=== PATIENT | female | born 1935 | race Caucasian/White ===

== ENCOUNTER 2017-08-20 16:07 | Inpatient (IN) | payer MEDICARE, OTHER ==
[2017-08-20] MEDS ORDERED: Haloperidol Lactate 5 mg/mL 1mL Vial IM STA (16:29)
--- NOTE | 2017-08-20 16:35 | ED Physician Chart ---
ED Chief Complaint/HPI - Patient Information Date Seen:: 08/20/17 Time Seen:: 16:29 Chief Complaint:: geripsych eval History of Present Illness:: pt sent from [place] for increased agitation. details of difficult behavior ...pt agitated at [place] and is confused/disoriented and yelling and trying to kick staff. anxious and restless. staff feel she is a danger to others. pt is verbal but I cant identify if this is a language or nonsense. she does not respond intelligably to [place] or citizen of [place] and I think she seems demented. pt is attempting to punch me after a friendly approach. she moves both arms nrmally. cant get pt to comply w detailed neuro exam or other fine exam points. Allergies:: Allergies Allergy/AdvReac Type Severity Reaction Status Date / Time MDX PCN (penicillin) Allergy Mild Verified 02/10/14 11:02 [PCN (penicillin)] Historian:: EMS, Medical Records Review:: Transfer documents Reviewed ED Review of Systems - Review of Systems General/Constitutional: No fever, No chills, No weight loss, No weakness, No diaphoresis, No edema, No loss of appetite Skin: No skin lesions, No rash, No bruising Head: No headache, No light-headedness Eyes: No loss of vision, No pain, No diplopia ENT: No earache, No nasal drainage, No sore throat, No tinnitus Neck: No neck pain, No swelling, No thyromegaly, No stiffness, No mass noted Cardio Vascular: No chest pain, No palpitations, No PND, No orthopnea, No edema Pulmonary: No SOB, No cough, No sputum, No wheezing GI: No nausea, No vomiting, No diarrhea, No pain, No melena, No hematochezia, No constipation, No hematemesis G/U: No dysuria, No frequency, No hematuria Musculoskeletal: No bone or joint pain, No back pain, No muscle pain Endocrine: No polyuria, No polydipsia Psychiatric: Prior psych history, No depression, No anxiety, No suicidal ideation, Other (agitation) Hematopoietic: No bruising, No lymphadenopathy Allergic/Immuno: No urticaria, No angioedema Neurological: No syncope, No focal symptoms, No weakness, No paresthesia, No headache, No seizure, No dizziness, No confusion, No vertigo ED Past Medical History - Past Medical History Past Medical History: HTN, DM, Dyslipidemia, Seizures, Dementia Social History: Care Facility Psychiatricy History: Schizophrenia, Dementia Medication: Reviewed Family Medical History - Family Member Mother History Unknown: Yes ED Physical Exam - Physical Examination General/Constitutional: Awake, Well-developed, well-nourished, Alert, No distress, Non-toxic appearing, Ambulatory Other Gen/Cons comments:: highly agitated and trying to hit me during exam which is severely limited because I have to hold both hands to get any exam at all. unclear if pt understands me at all but she is loudly verbal though unintelligable to me. Head: Atraumatic Eyes: Lids, conjuctiva normal, PERRL, EOMI Skin: Nl inspection, No rash, No skin lesions, No ecchymosis, Well hydrated, No lymphadenopathy ENMT: External ears, nose nl, Nasal exam nl, Lips, teeth, gums nl Neck: Nontender, Full ROM w/o pain, No JVD, No nuchal rigidity, No bruit, No mass, No stridor Respiratory: Nl effort/Exclusion, Clear to Auscultation, No Wheeze/Rhonchi/Rales Cardio Vascular: RRR, No murmur, gallop, rubs, NL S1 S2 GI: No tenderness/rebounding/guarding, No organomegaly, No hernia, Normal BS's, Nondistended, No mass/bruits, No McBurney tenderness : No CVA tenderness Extremities: No tenderness or effusion, Full ROM, normal strength in all extremities, No edema, Normal digits & nails Neuro/Psych: DTR's symmetric, Normal sensory exam, Normal motor strength, Normal gait, No focal deficits Other Neuro/Psych comments:: no obvious defecits but pt very agitated. Misc: normal gait, Normal back, No paraspinal tenderness ED Labs/Radiology/EKG Results - Lab Results Results: Laboratory Tests 08/20/17 08/20/17 08/20/17 16:45 16:45 17:50 WBC 6.6 RBC 5.46 H Hgb 13.8 Hct 42.8 D MCV 78.3 L MCH 25.3 L MCHC Differential 32.3 RDW 14.2 Plt Count 200 D MPV 8.9 Neutrophils % 55.5 Lymphocytes % 26.6 Monocytes % 12.6 H Eosinophils % 4.2 Basophils % 1.1 Sodium 134 L Potassium 5.4 H Chloride 103 Carbon Dioxide 24.6 Anion Gap 11.8 BUN 22 Creatinine 0.7 Est GFR ( Amer) TNP Est GFR (Non-Af Amer) TNP BUN/Creatinine Ratio 31.4 Glucose 165 H Calcium 9.5 Total Bilirubin 0.4 AST 17 ALT 10 Alkaline Phosphatase 80 Total Protein 6.8 Albumin 3.8 Globulin 3.0 Albumin/Globulin Ratio 1.3 Triglycerides 83 Cholesterol 184 LDL Cholesterol Direct 120 HDL Cholesterol 58 TSH 0.60 Salicylates < 25.0 L Acetaminophen < 10.0 L Ethyl Alcohol < 10 - EKG Interpretations EKG Time:: 18:30 Rate & Rhythm: a fib ...rate 100 [place]: 31 Intervals: qtc 534 Comments:: . no acute injury pattern ED Septic Shock - . Is Septic Shock (SBP<90, OR Lactate>4 mmol\L) present?: No ED Reassessment (Disposition) - Reassessment Reassessment:: pt much more calm after haldol. staff able to get labs drawn etc without getting injured.. Reassessment Condition:: Improved - Diagnosis Diagnosis:: 1)increased agitation / aggressive difficult behavior 2) medically clear for geripsych admit 3) rate stable a fib -unclear if new onset or chronic - Patient Disposition Admitted to:: [facility] Condition at Disposition:: Improved
[2017-08-20] MEDS ORDERED: Haloperidol Lactate 5 mg/mL 1mL Vial ONE (16:53)
[2017-08-20 17:09] LABS: ACETAMINOPHEN < 10.0 ug/mL (10.0-30.0); ALB/GLOB RATIO 1.3 (1.0-1.8); ALKALINE PHOSPHATASE 80 U/L (34-104); ANION GAP 11.8 (7.0-16.0); BILIRUBIN,TOTAL 0.4 mg/dL (0.3-1.0); BUN - UREA NITROGEN 22 mg/dL (7-25); BUN/CREATININE RATIO 31.4; CALCIUM SERUM 9.5 mg/dL (8.6-10.3); CARBON DIOXIDE 24.6 mEq/L (21.0-31.0); CHLORIDE 103 mEq/L (98-107); CHOLESTEROL 184 mg/dL (<200); CREATININE - SERUM 0.7 mg/dL (0.6-1.2); GLUCOSE 165 mg/dL (70-105); POTASSIUM SERUM 5.4 mEq/L (3.5-5.1); SGOT 17 U/L (13-39); SGPT/ALT 10 U/L (7-52); SODIUM SERUM 134 mEq/L (136-145); TRIGLYCERIDES 83 mg/dL (<150)
[2017-08-20 18:00] LABS: % BASOPHILS 1.1 % (0.0-2.0); % EOSINOPHILS 4.2 % (0.0-5.0); % LYMPHOCYTES 26.6 % (20.0-50.0); % MONOCYTES 12.6 % (2.0-10.0); % NEUTROPHILS 55.5 % (40.0-80.0); HEMOGLOBIN 13.8 gm/dL (12-16); MEAN CELL VOLUME 78.3 fl (81-100); MEAN CORPUSCULAR HEMOGLOBIN 25.3 pg (27.0-31.0); MEAN CORPUSCULAR HGB CONC 32.3 pg (28.0-36.0); MEAN PLATELET VOLUME 8.9 fl; NEUTROPHILE ABSOLUTE 3.6 Th/cmm (1.8-8.0); RED BLOOD COUNT 5.46 Mil/cmm (3.80-5.20); RED CELL DISTRIBUTION WIDTH 14.2 % (11.5-20.0); WHITE BLOOD COUNT 6.6 Th/cmm (4.8-10.8)
[2017-08-20 18:02] LABS: HEMATOCRIT 42.8 % (41.0-60)
[2017-08-20 18:03] LABS: PLATELET COUNT 200 Th/cmm (150-400)
[2017-08-20 18:17] LABS: URINE BILIRUBIN NEGATIVE (NEGATIVE); URINE BLOOD NEGATIVE (NEGATIVE); URINE GLUCOSE (UA) NEGATIVE (NEGATIVE); URINE KETONE NEGATIVE (NEGATIVE); URINE PROTEIN NEGATIVE (NEGATIVE)
[2017-08-20 18:20] LABS: URINE BACTERIA NONE SEEN /hpf (NONE SEEN); URINE COLOR YELLOW; URINE EPITHELIAL CELLS NONE SEEN /lpf (FEW); URINE RBC NONE SEEN /hpf (0-5); URINE WBC NONE SEEN /hpf (0-5)
[2017-08-20] MEDS ORDERED: Magnesium Hydroxide (MOM) 30 mL UDC PO PRN (20:18)
[2017-08-20] MEDS ORDERED: Maalox 30 mL Cup PO PRN (20:18)
[2017-08-20] MEDS ORDERED: Albuterol/Ipratropium Neb 3 ML AERS HHN PRN (20:39)
[2017-08-21 01:58] VITALS: BP 138/89
[2017-08-21 08:39] LABS: AMPHETAMINE URINE NEGATIVE (NEGATIVE); BARBITURATES URINE NEGATIVE (NEGATIVE); METHADONE URINE NEGATIVE (NEGATIVE)
--- NOTE | 2017-08-21 09:01 | History and Physical ---
History of Present Illness - HPI Chief Complaint: Increased in agitation HPI: Patient was send from SNF for evaluation secondary to increased in agitation, at arrival to ER patientwas atgitated trying to kick nurse. Vital Signs: Last Vital Signs Temp 0 F 08/21/17 06:41 Pulse 88 08/21/17 08:26 Resp 20 08/21/17 08:26 BP 138/89 08/21/17 01:58 Pulse Ox 95 08/21/17 08:26 Past Medical History Cardiovascular: Report: AFIB, CAD, HTN Pulmonary: Report: No Pertinent Hx WILD [employer]IMAL [employer]ET[employer]ER: Report: Dementia Psych: Report: No Pertinent Hx Musculoskeletal: Report: Muscle Atrophy Rheumatologic: Report: No pertinent Hx Infectious Disease: Report: No Pertinent Hx Renal/: Report: No Pertinent Hx Endocrine: Report: Diabetes Dermatology: Report: No Pertinent Hx - Past Surgical History Past Surgical History: No pertinent Hx Family Medical History - Family Member Mother History Unknown: Yes Social History Smoke: No Alcohol: None Drugs: None Lives: Senior Care Domestic Violence: Negative - Medications Home Medications: Home Medication Medication Instructions Recorded Type Albuterol/Ipratropium Neb [Duoneb 3 ml HHN Q6H PRN 08/20/17 History Neb] Carvedilol [Coreg] 3.125 mg PO BID 08/20/17 History Dextromethorphan/Quinidine 1 cap PO Q12H 08/20/17 History [Nuedexta 20mg-10mg] Divalproex DR [Depakote DR] 125 mg PO BID 08/20/17 History Levetiracetam [Keppra] 500 mg PO Q12H 08/20/17 History Lorazepam [Ativan] 1 mg PO Q8H PRN 08/20/17 History Pantoprazole [Protonix] 40 mg PO DAILY 08/20/17 History - Allergies Allergies/Adverse Reactions: Allergies Allergy/AdvReac Type Severity Reaction Status Date / Time Penicillins [PCN] Allergy Verified 08/20/17 16:33 Review of Systems - Review of Systems Constitutional: Report: No Significant Eyes: Report: No Significant ENT: Report: No Significant Respiratory: Report: No Significant Cardiovascular: Report: No Significant Gastrointestinal: Report: No Significant Genitourinary: Report: No Significant Musculoskeletal: Report: No Significant Skin: Report: No Significant Neurological: Report: No Significant Physical Exam - Physical Exam HEENT: Report: Ears Nose Throat within normal limits Neck: Report: Within normal limits Cardiovascular Systems: Report: Regular, Rate and Rhythm Respiratory: Report: Breath Sounds are within normal limits Abdomen: Report: Non-tender to palpation Back: Report: Inspection of back is within normal limits. Extremities: Report: No pedal edema was noted on inspection Skin: Report: Color of skin is within normal limits Neuro/Psych: Report: Disoriented to name time or place (Neurological evaluation not completed due to patient agitation) - Lab Results All Lab Results last 24 hours: Laboratory Last Values WBC 6.6 Th/cmm (4.8-10.8) 08/20/17 17:50 RBC 5.46 Mil/cmm (3.80-5.20) H 08/20/17 17:50 Hgb 13.8 gm/dL (12-16) 08/20/17 17:50 Hct 42.8 % (41.0-60) D 08/20/17 17:50 MCV 78.3 fl (81-100) L 08/20/17 17:50 MCH 25.3 pg (27.0-31.0) L 08/20/17 17:50 MCHC Differential 32.3 pg (28.0-36.0) 08/20/17 17:50 RDW 14.2 % (11.5-20.0) 08/20/17 17:50 Plt Count 200 Th/cmm (150-400) D 08/20/17 17:50 MPV 8.9 fl 08/20/17 17:50 Neutrophils % 55.5 % (40.0-80.0) 08/20/17 17:50 Lymphocytes % 26.6 % (20.0-50.0) 08/20/17 17:50 Monocytes % 12.6 % (2.0-10.0) H 08/20/17 17:50 Eosinophils % 4.2 % (0.0-5.0) 08/20/17 17:50 Basophils % 1.1 % (0.0-2.0) 08/20/17 17:50 Sodium 134 mEq/L (136-145) L 08/20/17 16:45 Potassium 5.4 mEq/L (3.5-5.1) H 08/20/17 16:45 Chloride 103 mEq/L (98-107) 08/20/17 16:45 Carbon Dioxide 24.6 mEq/L (21.0-31.0) 08/20/17 16:45 Anion Gap 11.8 (7.0-16.0) 08/20/17 16:45 BUN 22 mg/dL (7-25) 08/20/17 16:45 Creatinine 0.7 mg/dL (0.6-1.2) 08/20/17 16:45 Est GFR ( Amer) TNP 08/20/17 16:45 Est GFR (Non-Af Amer) TNP 08/20/17 16:45 BUN/Creatinine Ratio 31.4 08/20/17 16:45 Glucose 165 mg/dL (70-105) H 08/20/17 16:45 Calcium 9.5 mg/dL (8.6-10.3) 08/20/17 16:45 Total Bilirubin 0.4 mg/dL (0.3-1.0) 08/20/17 16:45 AST 17 U/L (13-39) 08/20/17 16:45 ALT 10 U/L (7-52) 08/20/17 16:45 Alkaline Phosphatase 80 U/L (34-104) 08/20/17 16:45 Total Protein 6.8 gm/dL (6.0-8.3) 08/20/17 16:45 Albumin 3.8 gm/dL (3.7-5.3) 08/20/17 16:45 Globulin 3.0 gm/dL 08/20/17 16:45 Albumin/Globulin Ratio 1.3 (1.0-1.8) 08/20/17 16:45 Triglycerides 83 mg/dL (<150) 08/20/17 16:45 Cholesterol 184 mg/dL (<200) 08/20/17 16:45 LDL Cholesterol Direct 120 mg/dL (75-193) 08/20/17 16:45 HDL Cholesterol 58 mg/dL (23-92) 08/20/17 16:45 TSH 0.60 uIU/ml (0.34-5.60) 08/20/17 16:45 Urine Source CLEAN C 08/20/17 17:52 Urine Color YELLOW 08/20/17 17:52 Urine Clarity CLEAR (CLEAR) 08/20/17 17:52 Urine pH 6.0 (4.6 - 8.0) 08/20/17 17:52 Ur Specific [place] 1.025 (1.005-1.030) 08/20/17 17:52 Urine Protein NEGATIVE mg/dL (NEGATIVE) 08/20/17 17:52 Urine Glucose (UA) NEGATIVE mg/dL (NEGATIVE) 08/20/17 17:52 Urine Ketones NEGATIVE mg/dL (NEGATIVE) 08/20/17 17:52 Urine Blood NEGATIVE (NEGATIVE) 08/20/17 17:52 Urine Nitrate NEGATIVE (NEGATIVE) 08/20/17 17:52 Urine Bilirubin NEGATIVE (NEGATIVE) 08/20/17 17:52 Urine Urobilinogen 1.0 E.U./dL (0.2 - 1.0) 08/20/17 17:52 Ur Leukocyte Esterase NEGATIVE (NEGATIVE) 08/20/17 17:52 Urine RBC NONE SEEN /hpf (0-5) 08/20/17 17:52 Urine WBC NONE SEEN /hpf (0-5) 08/20/17 17:52 Ur Epithelial Cells NONE SEEN /lpf (FEW) 08/20/17 17:52 Urine Bacteria NONE SEEN /hpf (NONE SEEN) 08/20/17 17:52 Salicylates < 25.0 mg/L (30.0-100.0) L 08/20/17 16:45 Urine Opiates Screen NEGATIVE (NEGATIVE) 08/20/17 17:52 Urine Methadone Screen NEGATIVE (NEGATIVE) 08/20/17 17:52 Acetaminophen < 10.0 ug/mL (10.0-30.0) L 08/20/17 16:45 Ur Barbiturates Screen NEGATIVE (NEGATIVE) 08/20/17 17:52 Ur Tricyclics Screen NEGATIVE (NEGATIVE) 08/20/17 17:52 Ur Phencyclidine Scrn NEGATIVE (NEGATIVE) 08/20/17 17:52 Amphetamines Screen NEGATIVE (NEGATIVE) 08/20/17 17:52 U Methamphetamines Scrn NEGATIVE (NEGATIVE) 08/20/17 17:52 U Benzodiazepines Scrn NEGATIVE (NEGATIVE) 08/20/17 17:52 U Cocaine Metab Screen NEGATIVE (NEGATIVE) 08/20/17 17:52 U Cannabinoids Screen NEGATIVE (NEGATIVE) 08/20/17 17:52 Ethyl Alcohol < 10 mg/dL (0-10) 08/20/17 16:45 - Assessment Assessment: Patient is awake, confused, agitated in no acute distress. Dx: Psychosis, HTN, DM, Dyslipemia, Seizure disorder, A-fib. - Plan Plan: Patient is follow by Psychiatry. Will continue with SNF meds
[2017-08-21] MEDS: Multivitamin Tab PO SCH (09:35)
[2017-08-21] MEDS: Dextromethorphan/Quinidine 20mg/10mg Cap PO SCH ×2 (09:35→20:23)
[2017-08-21] MEDS: Pantoprazole 40 mg EC Tab PO SCH (09:35)
--- NOTE | 2017-08-21 09:43 | Diagnostic Imaging Report ---
CHEST X-RAY: AP view INDICATION: Shortness of breath COMPARISON: None FINDINGS: Exam is severely limited due to patient's head obscuring the upper thorax.. Otherwise no focal consolidation or effusions. Suboptimal lung volumes are noted. No effusions. Right basal atelectasis noted. Cardiomegaly is noted. The osseous structures demonstrate osteopenia and degenerative changes. IMPRESSION: Severely limited exam as patient's head obscures the upper thorax. Otherwise no focal consolidation identified. Right basal atelectasis Cardiomegaly.
--- NOTE | 2017-08-22 00:56 | Psychosocial Evaluation ---
DATE OF SERVICE: 08/21/2017 IDENTIFYING DATA: The patient is an 82-year-old woman admitted from the snf facility and that is in [facility]. Information obtained by directly interviewing the patient as well as talking to the staff members. As per the information, the patient is noted to be acutely agitated and confused and is reported to have been screaming and yelling prior to being hospitalized. The patient is reported to have been on Depakote and lorazepam, but the patient has been having difficult time to be following the directions. The patient at this time is being completely evaluated and physical examination requested done by Dr. Augie Flores. At the time of the hospitalization, the patient has been on the valproic acid 25 mg twice a day and lorazepam 1 mg q.8 hours p.r.n. and even with the medication. The patient has been having difficult time. PAST PSYCHIATRIC HISTORY: Details are not known. MEDICAL HISTORY AND PHYSICAL EXAMINATION: Requested done by Dr. Flores. LEGAL PROBLEMS: None at this time. MENTAL STATUS EXAMINATION: The patient is an 82-year-old woman, superficially cooperative. Eye contact is poor. Mood is irritable. Affect is constricted. Insight and judgment at this time are noted to be poor. Impulse control is also noted to be poor. The patient is reported to have been having screaming and yelling episodes at the facility. The patient is lying in bed and is not providing much of information. Attention span and concentration are noted to be poor short and senior living are noted to be impaired. DIAGNOSTIC IMPRESSION: 1. Psychotic disorder, not otherwise specified. B. Dementia and behavioral change secondary trait. AXIS II: None. AXIS III: As per Dr. Flores. IMMEDIATE TREATMENT PLAN: The patient is going to be continued on the Depakote and Ativan is going to be given only has 0.5 mg b.i.d. p.r.n. and the patient is going to be closely monitored. ESTIMATED LENGTH OF STAY: Three to five days. DISCHARGE CRITERIA: When the patient is no longer a threat to self or others and be able to cope with the stress. [facility]# [id number]
[2017-08-22] MEDS: Dextromethorphan/Quinidine 20mg/10mg Cap PO SCH ×2 (09:07→20:53)
[2017-08-22] MEDS: Multivitamin Tab PO SCH (09:09)
[2017-08-22] MEDS: Pantoprazole 40 mg EC Tab PO SCH (09:09)
[2017-08-22] MEDS ORDERED: INSULIN ASPART SLIDING SCALE 100 UNITS/ML UNIT SUBQ SCH (19:17)
--- NOTE | 2017-08-23 02:01 | Progress Notes ---
DATE: 08/22/2017 SUBJECTIVE: Staff was spoken to. The patient is interviewed. Mood is noted to be irritable. Affect is constricted. The patient is having a mild tremor in the upper extremity. The patient is refusing to take any of the medications. The patient, however, has been having some spells where she has been screaming and yelling. No side effects to the medications are noted at this time. The patient is going to be given a low dose of the Ativan if she is going to be out of control. ASSESSMENT: The patient is still impulsive at this time. PLAN: To continue the patient with the supportive therapy and encouraged the patient to verbalize the concerns rather than to act out. JOB# [id number]
[2017-08-23] MEDS: INSULIN ASPART SLIDING SCALE 100 UNITS/ML UNIT SUBQ SCH ×2 (06:38→17:37)
--- NOTE | 2017-08-23 09:18 | General Progress Note ---
Subjective - Review of Systems Service Date: 08/23/17 Subjective: Non verbal Objective - Results Result Diagrams: 08/20/17 17:50 08/20/17 16:45 Recent Labs: Laboratory Last Values WBC 6.6 Th/cmm (4.8-10.8) 08/20/17 17:50 RBC 5.46 Mil/cmm (3.80-5.20) H 08/20/17 17:50 Hgb 13.8 gm/dL (12-16) 08/20/17 17:50 Hct 42.8 % (41.0-60) D 08/20/17 17:50 MCV 78.3 fl (81-100) L 08/20/17 17:50 MCH 25.3 pg (27.0-31.0) L 08/20/17 17:50 MCHC Differential 32.3 pg (28.0-36.0) 08/20/17 17:50 RDW 14.2 % (11.5-20.0) 08/20/17 17:50 Plt Count 200 Th/cmm (150-400) D 08/20/17 17:50 MPV 8.9 fl 08/20/17 17:50 Neutrophils % 55.5 % (40.0-80.0) 08/20/17 17:50 Lymphocytes % 26.6 % (20.0-50.0) 08/20/17 17:50 Monocytes % 12.6 % (2.0-10.0) H 08/20/17 17:50 Eosinophils % 4.2 % (0.0-5.0) 08/20/17 17:50 Basophils % 1.1 % (0.0-2.0) 08/20/17 17:50 Sodium 134 mEq/L (136-145) L 08/20/17 16:45 Potassium 5.4 mEq/L (3.5-5.1) H 08/20/17 16:45 Chloride 103 mEq/L (98-107) 08/20/17 16:45 Carbon Dioxide 24.6 mEq/L (21.0-31.0) 08/20/17 16:45 Anion Gap 11.8 (7.0-16.0) 08/20/17 16:45 BUN 22 mg/dL (7-25) 08/20/17 16:45 Creatinine 0.7 mg/dL (0.6-1.2) 08/20/17 16:45 Est GFR ( Amer) TNP 08/20/17 16:45 Est GFR (Non-Af Amer) TNP 08/20/17 16:45 BUN/Creatinine Ratio 31.4 08/20/17 16:45 Glucose 165 mg/dL (70-105) H 08/20/17 16:45 POC Glucose 115 MG/DL (70 - 105) H 08/23/17 06:13 Calcium 9.5 mg/dL (8.6-10.3) 08/20/17 16:45 Total Bilirubin 0.4 mg/dL (0.3-1.0) 08/20/17 16:45 AST 17 U/L (13-39) 08/20/17 16:45 ALT 10 U/L (7-52) 08/20/17 16:45 Alkaline Phosphatase 80 U/L (34-104) 08/20/17 16:45 Total Protein 6.8 gm/dL (6.0-8.3) 08/20/17 16:45 Albumin 3.8 gm/dL (3.7-5.3) 08/20/17 16:45 Globulin 3.0 gm/dL 08/20/17 16:45 Albumin/Globulin Ratio 1.3 (1.0-1.8) 08/20/17 16:45 Triglycerides 83 mg/dL (<150) 08/20/17 16:45 Cholesterol 184 mg/dL (<200) 08/20/17 16:45 LDL Cholesterol Direct 120 mg/dL (75-193) 08/20/17 16:45 HDL Cholesterol 58 mg/dL (23-92) 08/20/17 16:45 TSH 0.60 uIU/ml (0.34-5.60) 08/20/17 16:45 Urine Source CLEAN C 08/20/17 17:52 Urine Color YELLOW 08/20/17 17:52 Urine Clarity CLEAR (CLEAR) 08/20/17 17:52 Urine pH 6.0 (4.6 - 8.0) 08/20/17 17:52 Ur Specific [place] 1.025 (1.005-1.030) 08/20/17 17:52 Urine Protein NEGATIVE mg/dL (NEGATIVE) 08/20/17 17:52 Urine Glucose (UA) NEGATIVE mg/dL (NEGATIVE) 08/20/17 17:52 Urine Ketones NEGATIVE mg/dL (NEGATIVE) 08/20/17 17:52 Urine Blood NEGATIVE (NEGATIVE) 08/20/17 17:52 Urine Nitrate NEGATIVE (NEGATIVE) 08/20/17 17:52 Urine Bilirubin NEGATIVE (NEGATIVE) 08/20/17 17:52 Urine Urobilinogen 1.0 E.U./dL (0.2 - 1.0) 08/20/17 17:52 Ur Leukocyte Esterase NEGATIVE (NEGATIVE) 08/20/17 17:52 Urine RBC NONE SEEN /hpf (0-5) 08/20/17 17:52 Urine WBC NONE SEEN /hpf (0-5) 08/20/17 17:52 Ur Epithelial Cells NONE SEEN /lpf (FEW) 08/20/17 17:52 Urine Bacteria NONE SEEN /hpf (NONE SEEN) 08/20/17 17:52 Salicylates < 25.0 mg/L (30.0-100.0) L 08/20/17 16:45 Urine Opiates Screen NEGATIVE (NEGATIVE) 08/20/17 17:52 Urine Methadone Screen NEGATIVE (NEGATIVE) 08/20/17 17:52 Acetaminophen < 10.0 ug/mL (10.0-30.0) L 08/20/17 16:45 Ur Barbiturates Screen NEGATIVE (NEGATIVE) 08/20/17 17:52 Ur Tricyclics Screen NEGATIVE (NEGATIVE) 08/20/17 17:52 Ur Phencyclidine Scrn NEGATIVE (NEGATIVE) 08/20/17 17:52 Amphetamines Screen NEGATIVE (NEGATIVE) 08/20/17 17:52 U Methamphetamines Scrn NEGATIVE (NEGATIVE) 08/20/17 17:52 U Benzodiazepines Scrn NEGATIVE (NEGATIVE) 08/20/17 17:52 U Cocaine Metab Screen NEGATIVE (NEGATIVE) 08/20/17 17:52 U Cannabinoids Screen NEGATIVE (NEGATIVE) 08/20/17 17:52 Ethyl Alcohol < 10 mg/dL (0-10) 08/20/17 16:45 RPR NONREACTIVE (NONREACTIVE) 08/20/17 16:45 - Physical Exam Vitals and I&O: Vital Signs Temp 98.4 F 08/23/17 06:36 Pulse 66 08/23/17 08:12 Resp 18 08/23/17 08:12 BP 141/74 08/23/17 06:36 Pulse Ox 94 08/23/17 08:12 Intake & Output 08/22/17 08/23/17 08/23/17 18:59 06:59 18:59 Intake Total 660 120 Balance 660 120 Intake: Oral 660 120 Other: # Voids 3 3 # Bowel Movements 0 Active Medications: Current Medications Acetaminophen (Tylenol) 650 mg PO Q4HR PRN PRN Reason: Mild Pain / Temp above 100 Stop: 10/19/17 20:17 Al Hydrox/Mg Hydrox/Simethicone (Maalox) 30 ml PO Q4HR PRN PRN Reason: GI DISTRESS Stop: 10/19/17 20:17 Albuterol/Ipratropium (Duoneb Neb) 3 ml HHN Q6H PRN PRN Reason: sob Stop: 10/19/17 20:38 Carvedilol (Coreg) 3.125 mg PO BID TARA Stop: 10/20/17 08:59 Last Admin: 08/22/17 16:58 Dose: Not Given Dextromethorphan/Quinidine (Nuedexta 20mg-10mg) 1 cap PO Q12H TARA Stop: 10/20/17 08:59 Last Admin: 08/22/17 20:53 Dose: Not Given Diphenhydramine HCl (Benadryl) 25 mg PO TID PRN PRN Reason: Cough Stop: 10/21/17 13:24 Divalproex Sodium (Depakote Dr) 125 mg PO BID TARA PRN Reason: Protocol Stop: 10/20/17 08:59 Last Admin: 08/22/17 16:57 Dose: Not Given Insulin Aspart (Novolog Insulin Sliding Scale) 0 units SUBQ BIDAC TARA PRN Reason: Protocol Stop: 10/22/17 07:29 Last Admin: 08/23/17 06:38 Dose: Not Given Levetiracetam (Keppra) 500 mg PO Q12H TARA Stop: 10/20/17 08:59 Last Admin: 08/22/17 20:53 Dose: Not Given Lorazepam (Ativan) 0.5 mg PO Q8H PRN; Protocol PRN Reason: Anxiety Stop: 10/19/17 20:38 Magnesium Hydroxide (Milk Of Magnesia) 30 ml PO HS PRN PRN Reason: Constipation Multivitamins/Vitamin C (Theragran) 1 tab PO DAILY TARA Stop: 10/20/17 08:59 Last Admin: 08/22/17 09:09 Dose: Not Given Pantoprazole Sodium (Protonix) 40 mg PO DAILY TARA Stop: 10/20/17 08:59 Last Admin: 08/22/17 09:09 Dose: Not Given Zolpidem Tartrate (Ambien) 5 mg PO HS PRN PRN Reason: Insomnia Stop: 10/19/17 20:17 General: Alert, Other HEENT: Atraumatic Neck: Supple Cardiovascular: Regular rate Lungs: Clear to auscultation Abdomen: Bowel sounds, Soft Extremities: Other (No edema) Neurological: Other (Non ambulatory) Skin: Other (warm and dry) Psych/Mental Status: Other (Confused) - Procedures Procedures: Procedures Procedure Code Date OTHER GROUP THERAPY 94.44 02/10/14 Assessment/Plan - Problem List Patient Problems: All Active Problems BPD (Active) DM (Active) GERD (Active) Hyperlipidemia (Active) Seizure (Active) agitation (Active) Mental health problem (Acute) F48.9 - Assessment Assessment: Patient is awake, confused, agitated in no acute distress. Dx: Psychosis, HTN, DM, Dyslipemia, Seizure disorder, A-fib. - Plan Plan: Patient is follow by Psychiatry. Will continue with SNF meds
[2017-08-23] MEDS: Pantoprazole 40 mg EC Tab PO SCH (09:36)
[2017-08-23] MEDS: Multivitamin Tab PO SCH (09:37)
[2017-08-23] MEDS: Dextromethorphan/Quinidine 20mg/10mg Cap PO SCH ×2 (09:37→21:05)
--- NOTE | 2017-08-24 00:47 | Progress Notes ---
DATE: 08/23/2017 SUBJECTIVE: The patient is very irritable and anxious. The patient has been having poor coping skills. The patient tends to scream and yelling ____ towards the end of the day. Because of the age, we have been giving the patient only the Ativan to calm her down. No side effects to the medications are noted at this time. ASSESSMENT: The patient is still grossly demented. PLAN: To continue the patient with supportive therapy. I encouraged the patient to verbalize the concerns rather than to act out at this time. The patient is having difficult time and is not ready to be discharged to a lower level of care yet. JOB# [id number]
[2017-08-24] MEDS: INSULIN ASPART SLIDING SCALE 100 UNITS/ML UNIT SUBQ SCH ×2 (07:01→17:17)
[2017-08-24] MEDS: Multivitamin Tab PO SCH (09:27)
[2017-08-24] MEDS: Pantoprazole 40 mg EC Tab PO SCH (09:27)
[2017-08-24] MEDS: Dextromethorphan/Quinidine 20mg/10mg Cap PO SCH ×2 (09:27→20:25)
--- NOTE | 2017-08-24 10:18 | General Progress Note ---
Subjective - Review of Systems Service Date: 08/24/17 Subjective: Non verbal Objective - Results Result Diagrams: 08/20/17 17:50 08/20/17 16:45 Recent Labs: Laboratory Last Values WBC 6.6 Th/cmm (4.8-10.8) 08/20/17 17:50 RBC 5.46 Mil/cmm (3.80-5.20) H 08/20/17 17:50 Hgb 13.8 gm/dL (12-16) 08/20/17 17:50 Hct 42.8 % (41.0-60) D 08/20/17 17:50 MCV 78.3 fl (81-100) L 08/20/17 17:50 MCH 25.3 pg (27.0-31.0) L 08/20/17 17:50 MCHC Differential 32.3 pg (28.0-36.0) 08/20/17 17:50 RDW 14.2 % (11.5-20.0) 08/20/17 17:50 Plt Count 200 Th/cmm (150-400) D 08/20/17 17:50 MPV 8.9 fl 08/20/17 17:50 Neutrophils % 55.5 % (40.0-80.0) 08/20/17 17:50 Lymphocytes % 26.6 % (20.0-50.0) 08/20/17 17:50 Monocytes % 12.6 % (2.0-10.0) H 08/20/17 17:50 Eosinophils % 4.2 % (0.0-5.0) 08/20/17 17:50 Basophils % 1.1 % (0.0-2.0) 08/20/17 17:50 Sodium 134 mEq/L (136-145) L 08/20/17 16:45 Potassium 5.4 mEq/L (3.5-5.1) H 08/20/17 16:45 Chloride 103 mEq/L (98-107) 08/20/17 16:45 Carbon Dioxide 24.6 mEq/L (21.0-31.0) 08/20/17 16:45 Anion Gap 11.8 (7.0-16.0) 08/20/17 16:45 BUN 22 mg/dL (7-25) 08/20/17 16:45 Creatinine 0.7 mg/dL (0.6-1.2) 08/20/17 16:45 Est GFR ( Amer) TNP 08/20/17 16:45 Est GFR (Non-Af Amer) TNP 08/20/17 16:45 BUN/Creatinine Ratio 31.4 08/20/17 16:45 Glucose 165 mg/dL (70-105) H 08/20/17 16:45 POC Glucose 186 MG/DL (70 - 105) H 08/24/17 06:40 Calcium 9.5 mg/dL (8.6-10.3) 08/20/17 16:45 Total Bilirubin 0.4 mg/dL (0.3-1.0) 08/20/17 16:45 AST 17 U/L (13-39) 08/20/17 16:45 ALT 10 U/L (7-52) 08/20/17 16:45 Alkaline Phosphatase 80 U/L (34-104) 08/20/17 16:45 Total Protein 6.8 gm/dL (6.0-8.3) 08/20/17 16:45 Albumin 3.8 gm/dL (3.7-5.3) 08/20/17 16:45 Globulin 3.0 gm/dL 08/20/17 16:45 Albumin/Globulin Ratio 1.3 (1.0-1.8) 08/20/17 16:45 Triglycerides 83 mg/dL (<150) 08/20/17 16:45 Cholesterol 184 mg/dL (<200) 08/20/17 16:45 LDL Cholesterol Direct 120 mg/dL (75-193) 08/20/17 16:45 HDL Cholesterol 58 mg/dL (23-92) 08/20/17 16:45 TSH 0.60 uIU/ml (0.34-5.60) 08/20/17 16:45 Urine Source CLEAN C 08/20/17 17:52 Urine Color YELLOW 08/20/17 17:52 Urine Clarity CLEAR (CLEAR) 08/20/17 17:52 Urine pH 6.0 (4.6 - 8.0) 08/20/17 17:52 Ur Specific [place] 1.025 (1.005-1.030) 08/20/17 17:52 Urine Protein NEGATIVE mg/dL (NEGATIVE) 08/20/17 17:52 Urine Glucose (UA) NEGATIVE mg/dL (NEGATIVE) 08/20/17 17:52 Urine Ketones NEGATIVE mg/dL (NEGATIVE) 08/20/17 17:52 Urine Blood NEGATIVE (NEGATIVE) 08/20/17 17:52 Urine Nitrate NEGATIVE (NEGATIVE) 08/20/17 17:52 Urine Bilirubin NEGATIVE (NEGATIVE) 08/20/17 17:52 Urine Urobilinogen 1.0 E.U./dL (0.2 - 1.0) 08/20/17 17:52 Ur Leukocyte Esterase NEGATIVE (NEGATIVE) 08/20/17 17:52 Urine RBC NONE SEEN /hpf (0-5) 08/20/17 17:52 Urine WBC NONE SEEN /hpf (0-5) 08/20/17 17:52 Ur Epithelial Cells NONE SEEN /lpf (FEW) 08/20/17 17:52 Urine Bacteria NONE SEEN /hpf (NONE SEEN) 08/20/17 17:52 Salicylates < 25.0 mg/L (30.0-100.0) L 08/20/17 16:45 Urine Opiates Screen NEGATIVE (NEGATIVE) 08/20/17 17:52 Urine Methadone Screen NEGATIVE (NEGATIVE) 08/20/17 17:52 Acetaminophen < 10.0 ug/mL (10.0-30.0) L 08/20/17 16:45 Ur Barbiturates Screen NEGATIVE (NEGATIVE) 08/20/17 17:52 Ur Tricyclics Screen NEGATIVE (NEGATIVE) 08/20/17 17:52 Ur Phencyclidine Scrn NEGATIVE (NEGATIVE) 08/20/17 17:52 Amphetamines Screen NEGATIVE (NEGATIVE) 08/20/17 17:52 U Methamphetamines Scrn NEGATIVE (NEGATIVE) 08/20/17 17:52 U Benzodiazepines Scrn NEGATIVE (NEGATIVE) 08/20/17 17:52 U Cocaine Metab Screen NEGATIVE (NEGATIVE) 08/20/17 17:52 U Cannabinoids Screen NEGATIVE (NEGATIVE) 08/20/17 17:52 Ethyl Alcohol < 10 mg/dL (0-10) 08/20/17 16:45 RPR NONREACTIVE (NONREACTIVE) 08/20/17 16:45 - Physical Exam Vitals and I&O: Vital Signs Temp 97.2 F 08/24/17 06:41 Pulse 68 08/24/17 09:27 Resp 18 08/24/17 07:43 BP 146/61 08/24/17 09:27 Pulse Ox 92 08/24/17 07:43 Intake & Output 08/23/17 08/24/17 08/24/17 18:59 06:59 18:59 Intake Total 960 120 Balance 960 120 Weight (lbs) 50.439 kg Intake: Oral 960 120 Other: # Voids 3 3 # Bowel Movements 0 Active Medications: Current Medications Acetaminophen (Tylenol) 650 mg PO Q4HR PRN PRN Reason: Mild Pain / Temp above 100 Stop: 10/19/17 20:17 Last Admin: 08/23/17 11:16 Dose: 650 mg Al Hydrox/Mg Hydrox/Simethicone (Maalox) 30 ml PO Q4HR PRN PRN Reason: GI DISTRESS Stop: 10/19/17 20:17 Albuterol/Ipratropium (Duoneb Neb) 3 ml HHN Q6H PRN PRN Reason: sob Stop: 10/19/17 20:38 Carvedilol (Coreg) 3.125 mg PO BID TARA Stop: 10/20/17 08:59 Last Admin: 08/24/17 09:27 Dose: 3.125 mg Dextromethorphan/Quinidine (Nuedexta 20mg-10mg) 1 cap PO Q12H TARA Stop: 10/20/17 08:59 Last Admin: 08/24/17 09:27 Dose: 1 cap Diphenhydramine HCl (Benadryl) 25 mg PO TID PRN PRN Reason: Cough Stop: 10/21/17 13:24 Divalproex Sodium (Depakote Dr) 125 mg PO BID TARA PRN Reason: Protocol Stop: 10/20/17 08:59 Last Admin: 08/24/17 09:27 Dose: 125 mg Insulin Aspart (Novolog Insulin Sliding Scale) 0 units SUBQ BIDAC TARA PRN Reason: Protocol Stop: 10/22/17 07:29 Last Admin: 08/24/17 07:01 Dose: 2 units Levetiracetam (Keppra) 500 mg PO Q12H TARA Stop: 10/20/17 08:59 Last Admin: 08/24/17 09:27 Dose: 500 mg Lorazepam (Ativan) 0.5 mg PO Q8H PRN; Protocol PRN Reason: Anxiety Stop: 10/19/17 20:38 Magnesium Hydroxide (Milk Of Magnesia) 30 ml PO HS PRN PRN Reason: Constipation Multivitamins/Vitamin C (Theragran) 1 tab PO DAILY TARA Stop: 10/20/17 08:59 Last Admin: 08/24/17 09:27 Dose: 1 tab Pantoprazole Sodium (Protonix) 40 mg PO DAILY TARA Stop: 10/20/17 08:59 Last Admin: 08/24/17 09:27 Dose: 40 mg Zolpidem Tartrate (Ambien) 5 mg PO HS PRN PRN Reason: Insomnia Stop: 10/19/17 20:17 General: Alert, Other HEENT: Atraumatic Neck: Supple Cardiovascular: Regular rate Lungs: Clear to auscultation Abdomen: Bowel sounds, Soft Extremities: Other (No edema) Neurological: Other (Non ambulatory) Skin: Other (warm and dry) Psych/Mental Status: Other (Confused) - Procedures Procedures: Procedures Procedure Code Date OTHER GROUP THERAPY 94.44 02/10/14 Assessment/Plan - Problem List Patient Problems: All Active Problems BPD (Active) DM (Active) GERD (Active) Hyperlipidemia (Active) Seizure (Active) agitation (Active) Mental health problem (Acute) F48.9 - Assessment Assessment: Patient is awake, confused, agitated in no acute distress. Dx: Psychosis, HTN, DM, Dyslipemia, Seizure disorder, A-fib. - Plan Plan: Patient is follow by Psychiatry. Will continue with SNF meds. Nutritional Asmnt/Malnutr-PDOC - Dietary Evaluation Malnutrition Findings (Please click <Entered> for more info): Nutritional Asmnt/Malnutrition Start: 08/23/17 17: 05 Text: Status: Complete Freq: Document 08/23/17 17:05 GSUN (Rec: 08/23/17 17:16 [id number]) Nutritional Asmnt/Malnutrition Patient General Information Nutritional Screening Moderate Risk Screening Diagnosis Psychotic disorder NOS, dementia behavioral change Pertinent Medical Hx/Surgical Hx Afib, CAD, HTN, dementia, muscle atrophy, DM Subjective Information 82 year old female from SNF. Per EMR, 0% for 5 out of 6 meals recorded. Pt with 1 meal of 75% yesterday 08/22 with family assisted with meal, creative writer visualized. Visited pt during meal time today. YARD DEMURRAGE CLERK assisting with meals, observed pt finished >50% of meal at time of visit. YARD DEMURRAGE CLERK also stated pt ate 100% of breakfast with total assist. Prior to meal time, pt with eyes closed, non -verbal. Pt does not appear 5ft 7in nor 165lb, CBW 111.2lb via bedscale. No muscle fat wasting noted. Current Diet Order/ Nutrition Support Regular, groun meat Pertinent Medications Novolog, MOM, Theragran Pertinent Labs 08/20: glucose 165H POC glucose 115-266 since adm Nutritional Hx/Data Current Weight (lbs) 50.439 kg Weight (Calculated Kilograms) 50.4 Weight (Calculated Grams) 27312.5 GI Symptoms Usual diet at home [facility]: regular, mech soft, thin, ground meat Skin Integrity/Comment: Gopi 16. Discoloration upper arms. Estimated Nutritional Goals BEE in Kcals: Using Current wt Calories/Kcals/Kg CBW 111.2lb/50.5kg Kcals Calculated 1263-1515kcal (25-30kcal/kg) Protein: Using Current wt Protein Calculated 51g (1g/kg) Fluid: ml 1263-1515ml (1ml/kcal) Nutritional Problem 2. Problem Problem Altered nutrition related laboratory values Etiology DM aeb Signs/Symptoms: H&P, elevated glucose levels, on DM meds 1. Problem Problem Self feeding difficult yrelated to Etiology medical condition, cognition aeb Signs/Symptoms: pt requires total assist Intervention/Recommendation Comments 1. Recommend [id number] with Bosot glucose QD, mech soft chopped with ground meat. 2. Nursing staff to provide total assist with meals. 3. Monitor weight and height. Pt does not appear 5ft 7in at 165lb. CBW 111.2lb via bedscale. No muscle/fat wasting noted. Expected Outcomes/Goals Expected Outcomes/Goals 1. PO intake to meet at least 75% of estimated nutritinoal needs.
[2017-08-25] MEDS: INSULIN ASPART SLIDING SCALE 100 UNITS/ML UNIT SUBQ SCH ×2 (06:31→16:48)
[2017-08-25] MEDS: Pantoprazole 40 mg EC Tab PO SCH (09:01)
[2017-08-25] MEDS: Multivitamin Tab PO SCH ×2 (09:01→10:30)
[2017-08-25] MEDS: Dextromethorphan/Quinidine 20mg/10mg Cap PO SCH ×2 (09:44→21:58)
--- NOTE | 2017-08-25 11:05 | General Progress Note ---
Subjective - Review of Systems Service Date: 08/25/17 Subjective: Non verbal Objective - Results Result Diagrams: 08/20/17 17:50 08/20/17 16:45 Recent Labs: Laboratory Last Values WBC 6.6 Th/cmm (4.8-10.8) 08/20/17 17:50 RBC 5.46 Mil/cmm (3.80-5.20) H 08/20/17 17:50 Hgb 13.8 gm/dL (12-16) 08/20/17 17:50 Hct 42.8 % (41.0-60) D 08/20/17 17:50 MCV 78.3 fl (81-100) L 08/20/17 17:50 MCH 25.3 pg (27.0-31.0) L 08/20/17 17:50 MCHC Differential 32.3 pg (28.0-36.0) 08/20/17 17:50 RDW 14.2 % (11.5-20.0) 08/20/17 17:50 Plt Count 200 Th/cmm (150-400) D 08/20/17 17:50 MPV 8.9 fl 08/20/17 17:50 Neutrophils % 55.5 % (40.0-80.0) 08/20/17 17:50 Lymphocytes % 26.6 % (20.0-50.0) 08/20/17 17:50 Monocytes % 12.6 % (2.0-10.0) H 08/20/17 17:50 Eosinophils % 4.2 % (0.0-5.0) 08/20/17 17:50 Basophils % 1.1 % (0.0-2.0) 08/20/17 17:50 Sodium 134 mEq/L (136-145) L 08/20/17 16:45 Potassium 5.4 mEq/L (3.5-5.1) H 08/20/17 16:45 Chloride 103 mEq/L (98-107) 08/20/17 16:45 Carbon Dioxide 24.6 mEq/L (21.0-31.0) 08/20/17 16:45 Anion Gap 11.8 (7.0-16.0) 08/20/17 16:45 BUN 22 mg/dL (7-25) 08/20/17 16:45 Creatinine 0.7 mg/dL (0.6-1.2) 08/20/17 16:45 Est GFR ( Amer) TNP 08/20/17 16:45 Est GFR (Non-Af Amer) TNP 08/20/17 16:45 BUN/Creatinine Ratio 31.4 08/20/17 16:45 Glucose 165 mg/dL (70-105) H 08/20/17 16:45 POC Glucose 110 MG/DL (70 - 105) H 08/25/17 06:13 Calcium 9.5 mg/dL (8.6-10.3) 08/20/17 16:45 Total Bilirubin 0.4 mg/dL (0.3-1.0) 08/20/17 16:45 AST 17 U/L (13-39) 08/20/17 16:45 ALT 10 U/L (7-52) 08/20/17 16:45 Alkaline Phosphatase 80 U/L (34-104) 08/20/17 16:45 Total Protein 6.8 gm/dL (6.0-8.3) 08/20/17 16:45 Albumin 3.8 gm/dL (3.7-5.3) 08/20/17 16:45 Globulin 3.0 gm/dL 08/20/17 16:45 Albumin/Globulin Ratio 1.3 (1.0-1.8) 08/20/17 16:45 Triglycerides 83 mg/dL (<150) 08/20/17 16:45 Cholesterol 184 mg/dL (<200) 08/20/17 16:45 LDL Cholesterol Direct 120 mg/dL (75-193) 08/20/17 16:45 HDL Cholesterol 58 mg/dL (23-92) 08/20/17 16:45 TSH 0.60 uIU/ml (0.34-5.60) 08/20/17 16:45 Urine Source CLEAN C 08/20/17 17:52 Urine Color YELLOW 08/20/17 17:52 Urine Clarity CLEAR (CLEAR) 08/20/17 17:52 Urine pH 6.0 (4.6 - 8.0) 08/20/17 17:52 Ur Specific [place] 1.025 (1.005-1.030) 08/20/17 17:52 Urine Protein NEGATIVE mg/dL (NEGATIVE) 08/20/17 17:52 Urine Glucose (UA) NEGATIVE mg/dL (NEGATIVE) 08/20/17 17:52 Urine Ketones NEGATIVE mg/dL (NEGATIVE) 08/20/17 17:52 Urine Blood NEGATIVE (NEGATIVE) 08/20/17 17:52 Urine Nitrate NEGATIVE (NEGATIVE) 08/20/17 17:52 Urine Bilirubin NEGATIVE (NEGATIVE) 08/20/17 17:52 Urine Urobilinogen 1.0 E.U./dL (0.2 - 1.0) 08/20/17 17:52 Ur Leukocyte Esterase NEGATIVE (NEGATIVE) 08/20/17 17:52 Urine RBC NONE SEEN /hpf (0-5) 08/20/17 17:52 Urine WBC NONE SEEN /hpf (0-5) 08/20/17 17:52 Ur Epithelial Cells NONE SEEN /lpf (FEW) 08/20/17 17:52 Urine Bacteria NONE SEEN /hpf (NONE SEEN) 08/20/17 17:52 Salicylates < 25.0 mg/L (30.0-100.0) L 08/20/17 16:45 Urine Opiates Screen NEGATIVE (NEGATIVE) 08/20/17 17:52 Urine Methadone Screen NEGATIVE (NEGATIVE) 08/20/17 17:52 Acetaminophen < 10.0 ug/mL (10.0-30.0) L 08/20/17 16:45 Ur Barbiturates Screen NEGATIVE (NEGATIVE) 08/20/17 17:52 Ur Tricyclics Screen NEGATIVE (NEGATIVE) 08/20/17 17:52 Ur Phencyclidine Scrn NEGATIVE (NEGATIVE) 08/20/17 17:52 Amphetamines Screen NEGATIVE (NEGATIVE) 08/20/17 17:52 U Methamphetamines Scrn NEGATIVE (NEGATIVE) 08/20/17 17:52 U Benzodiazepines Scrn NEGATIVE (NEGATIVE) 08/20/17 17:52 U Cocaine Metab Screen NEGATIVE (NEGATIVE) 08/20/17 17:52 U Cannabinoids Screen NEGATIVE (NEGATIVE) 08/20/17 17:52 Ethyl Alcohol < 10 mg/dL (0-10) 08/20/17 16:45 RPR NONREACTIVE (NONREACTIVE) 08/20/17 16:45 - Physical Exam Vitals and I&O: Vital Signs Temp 98.5 F 08/24/17 20:00 Pulse 74 08/25/17 09:44 Resp 18 08/25/17 07:09 BP 115/71 08/25/17 09:44 Pulse Ox 93 08/25/17 07:09 Intake & Output 08/24/17 08/25/17 08/25/17 18:59 06:59 18:59 Intake Total 800 40 Balance 800 40 Intake: Oral 800 40 Other: # Voids 4 2 # Bowel Movements 1 Active Medications: Current Medications Acetaminophen (Tylenol) 650 mg PO Q4HR PRN PRN Reason: Mild Pain / Temp above 100 Stop: 10/19/17 20:17 Last Admin: 08/23/17 11:16 Dose: 650 mg Al Hydrox/Mg Hydrox/Simethicone (Maalox) 30 ml PO Q4HR PRN PRN Reason: GI DISTRESS Stop: 10/19/17 20:17 Albuterol/Ipratropium (Duoneb Neb) 3 ml HHN Q6H PRN PRN Reason: sob Stop: 10/19/17 20:38 Carvedilol (Coreg) 3.125 mg PO BID [facility] Stop: 10/20/17 08:59 Last Admin: 08/25/17 09:44 Dose: 3.125 mg Dextromethorphan/Quinidine (Nuedexta 20mg-10mg) 1 cap PO Q12H TARA Stop: 10/20/17 08:59 Last Admin: 08/25/17 09:44 Dose: 1 cap Diphenhydramine HCl (Benadryl) 25 mg PO TID PRN PRN Reason: Cough Stop: 10/21/17 13:24 Divalproex Sodium (Depakote Dr) 125 mg PO BID TARA PRN Reason: Protocol Stop: 10/20/17 08:59 Last Admin: 08/25/17 09:00 Dose: 125 mg Insulin Aspart (Novolog Insulin Sliding Scale) 0 units SUBQ BIDAC TARA PRN Reason: Protocol Stop: 10/22/17 07:29 Last Admin: 08/25/17 06:31 Dose: Not Given Levetiracetam (Keppra) 500 mg PO Q12H TARA Stop: 10/20/17 08:59 Last Admin: 08/25/17 09:01 Dose: 500 mg Lorazepam (Ativan) 0.5 mg PO Q8H PRN; Protocol PRN Reason: Anxiety Stop: 10/19/17 20:38 Magnesium Hydroxide (Milk Of Magnesia) 30 ml PO HS PRN PRN Reason: Constipation Multivitamins/Vitamin C (Theragran) 1 tab PO DAILY TARA Stop: 10/20/17 08:59 Last Admin: 08/25/17 09:01 Dose: 1 tab Pantoprazole Sodium (Protonix) 40 mg PO DAILY TARA Stop: 10/20/17 08:59 Last Admin: 08/25/17 09:01 Dose: 40 mg Zolpidem Tartrate (Ambien) 5 mg PO HS PRN PRN Reason: Insomnia Stop: 10/19/17 20:17 General: Alert, Other HEENT: Atraumatic Neck: Supple Cardiovascular: Regular rate Lungs: Clear to auscultation Abdomen: Bowel sounds, Soft Extremities: Other (No edema) Neurological: Other (Non ambulatory) Skin: Other (warm and dry) Psych/Mental Status: Other (Confused) - Procedures Procedures: Procedures Procedure Code Date OTHER GROUP THERAPY 94.44 02/10/14 Assessment/Plan - Problem List Patient Problems: All Active Problems BPD (Active) DM (Active) GERD (Active) Hyperlipidemia (Active) Seizure (Active) agitation (Active) Mental health problem (Acute) F48.9 - Assessment Assessment: Patient is awake, confused, agitated in no acute distress. Dx: Psychosis, HTN, DM, Dyslipemia, Seizure disorder, A-fib. - Plan Plan: Patient is follow by Psychiatry. Will continue with SNF meds. Nutritional Asmnt/Malnutr-PDOC - Dietary Evaluation Malnutrition Findings (Please click <Entered> for more info): Nutritional Asmnt/Malnutrition Start: 08/23/17 17: 05 Text: Status: Complete Freq: Document 08/23/17 17:05 GSUN (Rec: 08/23/17 17:16 [email or web address] [id number]) Nutritional Asmnt/Malnutrition Patient General Information Nutritional Screening Moderate Risk Screening Diagnosis Psychotic disorder NOS, dementia behavioral change Pertinent Medical Hx/Surgical Hx Afib, CAD, HTN, dementia, muscle atrophy, DM Subjective Information 82 year old female from SNF. Per EMR, 0% for 5 out of 6 meals recorded. Pt with 1 meal of 75% yesterday 08/22 with family assisted with meal, freelance writer visualized. Visited pt during meal time today. DIMPLING MACHINE OPERATOR assisting with meals, observed pt finished >50% of meal at time of visit. DIMPLING MACHINE OPERATOR also stated pt ate 100% of breakfast with total assist. Prior to meal time, pt with eyes closed, non -verbal. Pt does not appear 5ft 7in nor 165lb, CBW 111.2lb via bedscale. No muscle fat wasting noted. Current Diet Order/ Nutrition Support Regular, groun meat Pertinent Medications Novolog, MOM, Theragran Pertinent Labs 08/20: glucose 165H POC glucose 115-266 since adm Nutritional Hx/Data Current Weight (lbs) 50.439 kg Weight (Calculated Kilograms) 50.4 Weight (Calculated Grams) 22262.5 GI Symptoms Usual diet at home [facility]: regular, mech soft, thin, ground meat Skin Integrity/Comment: Gopi 16. Discoloration upper arms. Estimated Nutritional Goals BEE in Kcals: Using Current wt Calories/Kcals/Kg CBW 111.2lb/50.5kg Kcals Calculated 1263-1515kcal (25-30kcal/kg) Protein: Using Current wt Protein Calculated 51g (1g/kg) Fluid: ml 1263-1515ml (1ml/kcal) Nutritional Problem 2. Problem Problem Altered nutrition related laboratory values Etiology DM aeb Signs/Symptoms: H&P, elevated glucose levels, on DM meds 1. Problem Problem Self feeding difficult yrelated to Etiology medical condition, cognition aeb Signs/Symptoms: pt requires total assist Intervention/Recommendation Comments 1. Recommend [id number] with Bosot glucose QD, mech soft chopped with ground meat. 2. Nursing staff to provide total assist with meals. 3. Monitor weight and height. Pt does not appear 5ft 7in at 165lb. CBW 111.2lb via bedscale. No muscle/fat wasting noted. Expected Outcomes/Goals Expected Outcomes/Goals 1. PO intake to meet at least 75% of estimated nutritinoal needs.
--- NOTE | 2017-08-26 02:02 | Progress Notes ---
DATE: 08/24/2017 SUBJECTIVE: Staff was spoken to. The patient is interviewed. Mood is noted to be irritable. Affect is constricted. The patient tends to yell and scream mainly when she does not get her way, coping skills are noted to be very poor. The patient is not making much sense. The patient is currently on Depakote and Ativan on a p.r.n. basis. No side effects to the medications are noted. ASSESSMENT: The patient is still demented and paranoid. PLAN: To continue the patient with the supportive therapy. I encouraged the patient to verbalize the concerns rather than to act out. JOB# [id number]
[2017-08-26] MEDS: INSULIN ASPART SLIDING SCALE 100 UNITS/ML UNIT SUBQ SCH ×2 (06:41→16:54)
[2017-08-26] MEDS: Pantoprazole 40 mg EC Tab PO SCH (10:35)
[2017-08-26] MEDS: Dextromethorphan/Quinidine 20mg/10mg Cap PO SCH ×2 (10:35→20:36)
[2017-08-26] MEDS: Multivitamin Tab PO SCH (10:36)
--- NOTE | 2017-08-26 17:43 | General Progress Note ---
Subjective - Review of Systems Service Date: 08/26/17 Subjective: Non verbal Objective - Results Result Diagrams: 08/20/17 17:50 08/20/17 16:45 Recent Labs: Laboratory Last Values WBC 6.6 Th/cmm (4.8-10.8) 08/20/17 17:50 RBC 5.46 Mil/cmm (3.80-5.20) H 08/20/17 17:50 Hgb 13.8 gm/dL (12-16) 08/20/17 17:50 Hct 42.8 % (41.0-60) D 08/20/17 17:50 MCV 78.3 fl (81-100) L 08/20/17 17:50 MCH 25.3 pg (27.0-31.0) L 08/20/17 17:50 MCHC Differential 32.3 pg (28.0-36.0) 08/20/17 17:50 RDW 14.2 % (11.5-20.0) 08/20/17 17:50 Plt Count 200 Th/cmm (150-400) D 08/20/17 17:50 MPV 8.9 fl 08/20/17 17:50 Neutrophils % 55.5 % (40.0-80.0) 08/20/17 17:50 Lymphocytes % 26.6 % (20.0-50.0) 08/20/17 17:50 Monocytes % 12.6 % (2.0-10.0) H 08/20/17 17:50 Eosinophils % 4.2 % (0.0-5.0) 08/20/17 17:50 Basophils % 1.1 % (0.0-2.0) 08/20/17 17:50 Sodium 134 mEq/L (136-145) L 08/20/17 16:45 Potassium 5.4 mEq/L (3.5-5.1) H 08/20/17 16:45 Chloride 103 mEq/L (98-107) 08/20/17 16:45 Carbon Dioxide 24.6 mEq/L (21.0-31.0) 08/20/17 16:45 Anion Gap 11.8 (7.0-16.0) 08/20/17 16:45 BUN 22 mg/dL (7-25) 08/20/17 16:45 Creatinine 0.7 mg/dL (0.6-1.2) 08/20/17 16:45 Est GFR ( Amer) TNP 08/20/17 16:45 Est GFR (Non-Af Amer) TNP 08/20/17 16:45 BUN/Creatinine Ratio 31.4 08/20/17 16:45 Glucose 165 mg/dL (70-105) H 08/20/17 16:45 POC Glucose 157 MG/DL (70 - 105) H 08/26/17 06:09 Calcium 9.5 mg/dL (8.6-10.3) 08/20/17 16:45 Total Bilirubin 0.4 mg/dL (0.3-1.0) 08/20/17 16:45 AST 17 U/L (13-39) 08/20/17 16:45 ALT 10 U/L (7-52) 08/20/17 16:45 Alkaline Phosphatase 80 U/L (34-104) 08/20/17 16:45 Total Protein 6.8 gm/dL (6.0-8.3) 08/20/17 16:45 Albumin 3.8 gm/dL (3.7-5.3) 08/20/17 16:45 Globulin 3.0 gm/dL 08/20/17 16:45 Albumin/Globulin Ratio 1.3 (1.0-1.8) 08/20/17 16:45 Triglycerides 83 mg/dL (<150) 08/20/17 16:45 Cholesterol 184 mg/dL (<200) 08/20/17 16:45 LDL Cholesterol Direct 120 mg/dL (75-193) 08/20/17 16:45 HDL Cholesterol 58 mg/dL (23-92) 08/20/17 16:45 TSH 0.60 uIU/ml (0.34-5.60) 08/20/17 16:45 Urine Source CLEAN C 08/20/17 17:52 Urine Color YELLOW 08/20/17 17:52 Urine Clarity CLEAR (CLEAR) 08/20/17 17:52 Urine pH 6.0 (4.6 - 8.0) 08/20/17 17:52 Ur Specific [place] 1.025 (1.005-1.030) 08/20/17 17:52 Urine Protein NEGATIVE mg/dL (NEGATIVE) 08/20/17 17:52 Urine Glucose (UA) NEGATIVE mg/dL (NEGATIVE) 08/20/17 17:52 Urine Ketones NEGATIVE mg/dL (NEGATIVE) 08/20/17 17:52 Urine Blood NEGATIVE (NEGATIVE) 08/20/17 17:52 Urine Nitrate NEGATIVE (NEGATIVE) 08/20/17 17:52 Urine Bilirubin NEGATIVE (NEGATIVE) 08/20/17 17:52 Urine Urobilinogen 1.0 E.U./dL (0.2 - 1.0) 08/20/17 17:52 Ur Leukocyte Esterase NEGATIVE (NEGATIVE) 08/20/17 17:52 Urine RBC NONE SEEN /hpf (0-5) 08/20/17 17:52 Urine WBC NONE SEEN /hpf (0-5) 08/20/17 17:52 Ur Epithelial Cells NONE SEEN /lpf (FEW) 08/20/17 17:52 Urine Bacteria NONE SEEN /hpf (NONE SEEN) 08/20/17 17:52 Salicylates < 25.0 mg/L (30.0-100.0) L 08/20/17 16:45 Urine Opiates Screen NEGATIVE (NEGATIVE) 08/20/17 17:52 Urine Methadone Screen NEGATIVE (NEGATIVE) 08/20/17 17:52 Acetaminophen < 10.0 ug/mL (10.0-30.0) L 08/20/17 16:45 Ur Barbiturates Screen NEGATIVE (NEGATIVE) 08/20/17 17:52 Ur Tricyclics Screen NEGATIVE (NEGATIVE) 08/20/17 17:52 Ur Phencyclidine Scrn NEGATIVE (NEGATIVE) 08/20/17 17:52 Amphetamines Screen NEGATIVE (NEGATIVE) 08/20/17 17:52 U Methamphetamines Scrn NEGATIVE (NEGATIVE) 08/20/17 17:52 U Benzodiazepines Scrn NEGATIVE (NEGATIVE) 08/20/17 17:52 U Cocaine Metab Screen NEGATIVE (NEGATIVE) 08/20/17 17:52 U Cannabinoids Screen NEGATIVE (NEGATIVE) 08/20/17 17:52 Ethyl Alcohol < 10 mg/dL (0-10) 08/20/17 16:45 RPR NONREACTIVE (NONREACTIVE) 08/20/17 16:45 - Physical Exam Vitals and I&O: Vital Signs Temp 98.3 F 08/26/17 06:27 Pulse 61 08/26/17 07:08 Resp 18 08/26/17 08:44 BP 131/60 08/26/17 06:27 Pulse Ox 96 08/26/17 07:08 Intake & Output 08/25/17 08/26/17 08/26/17 18:59 06:59 18:59 Intake Total 500 240 Balance 500 240 Intake: Oral 500 240 Other: # Voids 2 1 # Bowel Movements 0 0 Active Medications: Current Medications Acetaminophen (Tylenol) 650 mg PO Q4HR PRN PRN Reason: Mild Pain / Temp above 100 Stop: 10/19/17 20:17 Last Admin: 08/23/17 11:16 Dose: 650 mg Al Hydrox/Mg Hydrox/Simethicone (Maalox) 30 ml PO Q4HR PRN PRN Reason: GI DISTRESS Stop: 10/19/17 20:17 Albuterol/Ipratropium (Duoneb Neb) 3 ml HHN Q6H PRN PRN Reason: sob Stop: 10/19/17 20:38 Carvedilol (Coreg) 3.125 mg PO BID TARA Stop: 10/20/17 08:59 Last Admin: 08/26/17 16:53 Dose: Not Given Dextromethorphan/Quinidine (Nuedexta 20mg-10mg) 1 cap PO Q12H TARA Stop: 10/20/17 08:59 Last Admin: 08/26/17 10:35 Dose: 1 cap Diphenhydramine HCl (Benadryl) 25 mg PO TID PRN PRN Reason: Cough Stop: 10/21/17 13:24 Divalproex Sodium (Depakote Dr) 125 mg PO BID TARA PRN Reason: Protocol Stop: 10/20/17 08:59 Last Admin: 08/26/17 17:12 Dose: 125 mg Divalproex Sodium (Depakote Sprinkle) 125 mg PO Q12HR TARA PRN Reason: Protocol Stop: 10/24/17 20:59 Last Admin: 08/26/17 10:36 Dose: 125 mg Insulin Aspart (Novolog Insulin Sliding Scale) 0 units SUBQ BIDAC TARA PRN Reason: Protocol Stop: 10/22/17 07:29 Last Admin: 08/26/17 16:54 Dose: Not Given Levetiracetam (Keppra) 500 mg PO Q12H TARA Stop: 10/20/17 08:59 Last Admin: 08/26/17 10:36 Dose: 500 mg Lorazepam (Ativan) 0.5 mg PO Q8H PRN; Protocol PRN Reason: Anxiety Stop: 10/19/17 20:38 Last Admin: 08/26/17 10:10 Dose: 0.5 mg Magnesium Hydroxide (Milk Of Magnesia) 30 ml PO HS PRN PRN Reason: Constipation Multivitamins/Vitamin C (Theragran) 1 tab PO DAILY TARA Stop: 10/20/17 08:59 Last Admin: 08/26/17 10:36 Dose: Not Given Pantoprazole Sodium (Protonix) 40 mg PO DAILY TARA Stop: 10/20/17 08:59 Last Admin: 08/26/17 10:35 Dose: 40 mg Zolpidem Tartrate (Ambien) 5 mg PO HS PRN PRN Reason: Insomnia Stop: 10/19/17 20:17 General: Alert, Other HEENT: Atraumatic Neck: Supple Cardiovascular: Regular rate Lungs: Clear to auscultation Abdomen: Bowel sounds, Soft Extremities: Other (No edema) Neurological: Other (Non ambulatory) Skin: Other (warm and dry) Psych/Mental Status: Other (Confused) - Procedures Procedures: Procedures Procedure Code Date OTHER GROUP THERAPY 94.44 02/10/14 Assessment/Plan - Problem List Patient Problems: All Active Problems BPD (Active) DM (Active) GERD (Active) Hyperlipidemia (Active) Seizure (Active) agitation (Active) Mental health problem (Acute) F48.9 - Assessment Assessment: Patient is awake, confused, agitated in no acute distress. Dx: Psychosis, HTN, DM, Dyslipemia, Seizure disorder, A-fib. - Plan Plan: Patient is follow by Psychiatry. Will continue with SNF meds. Nutritional Asmnt/Malnutr-PDOC - Dietary Evaluation Malnutrition Findings (Please click <Entered> for more info): Nutritional Asmnt/Malnutrition Start: 08/23/17 17: 05 Text: Status: Complete Freq: Document 08/23/17 17:05 [email or web address] (Rec: 08/23/17 17:16 ARTEM [email or web address]) Nutritional Asmnt/Malnutrition Patient General Information Nutritional Screening Moderate Risk Screening Diagnosis Psychotic disorder NOS, dementia behavioral change Pertinent Medical Hx/Surgical Hx Afib, CAD, HTN, dementia, muscle atrophy, DM Subjective Information 82 year old female from SNF. Per EMR, 0% for 5 out of 6 meals recorded. Pt with 1 meal of 75% yesterday 08/22 with family assisted with meal, mortgage or loan underwriter visualized. Visited pt during meal time today. ZOOLOGY TECHNICAL OFFICER assisting with meals, observed pt finished >50% of meal at time of visit. ZOOLOGY TECHNICAL OFFICER also stated pt ate 100% of breakfast with total assist. Prior to meal time, pt with eyes closed, non -verbal. Pt does not appear 5ft 7in nor 165lb, CBW 111.2lb via bedscale. No muscle fat wasting noted. Current Diet Order/ Nutrition Support Regular, groun meat Pertinent Medications Novolog, MOM, Theragran Pertinent Labs 08/20: glucose 165H POC glucose 115-266 since adm Nutritional Hx/Data Current Weight (lbs) 50.439 kg Weight (Calculated Kilograms) 50.4 Weight (Calculated Grams) 66397.5 GI Symptoms Usual diet at home [place] Care: regular, mech soft, thin, ground meat Skin Integrity/Comment: Gopi 16. Discoloration upper arms. Estimated Nutritional Goals BEE in Kcals: Using Current wt Calories/Kcals/Kg CBW 111.2lb/50.5kg Kcals Calculated 1263-1515kcal (25-30kcal/kg) Protein: Using Current wt Protein Calculated 51g (1g/kg) Fluid: ml 1263-1515ml (1ml/kcal) Nutritional Problem 2. Problem Problem Altered nutrition related laboratory values Etiology DM aeb Signs/Symptoms: H&P, elevated glucose levels, on DM meds 1. Problem Problem Self feeding difficult yrelated to Etiology medical condition, cognition aeb Signs/Symptoms: pt requires total assist Intervention/Recommendation Comments 1. Recommend [id number] with Bosot glucose QD, mech soft chopped with ground meat. 2. Nursing staff to provide total assist with meals. 3. Monitor weight and height. Pt does not appear 5ft 7in at 165lb. CBW 111.2lb via bedscale. No muscle/fat wasting noted. Expected Outcomes/Goals Expected Outcomes/Goals 1. PO intake to meet at least 75% of estimated nutritinoal needs.
--- NOTE | 2017-08-27 05:32 | Progress Notes ---
DATE: 08/25/2017 PSYCHIATRIC PROGRESS NOTE SUBJECTIVE: Staff was spoken to. The patient is interviewed. Mood is noted to be irritable. Affect is constricted. Insight and judgment are noted to be still impaired. Impulse control seems to be poor. The patient is screaming and yelling. The patient has no insight into her illness. Mood swings are a major concern at this time and hence it is decided to add Depakote Sprinkles 125 mg twice a day and follow the patient with supportive therapy. PLAN: The patient is still demented and impulsive and she is not ready to be discharged to a lower level of care. JOB# [id number]
[2017-08-27] MEDS: INSULIN ASPART SLIDING SCALE 100 UNITS/ML UNIT SUBQ SCH ×2 (06:50→18:20)
--- NOTE | 2017-08-27 08:23 | General Progress Note ---
Subjective - Review of Systems Service Date: 08/27/17 Subjective: Non verbal Objective - Results Result Diagrams: 08/20/17 17:50 08/20/17 16:45 Recent Labs: Laboratory Last Values WBC 6.6 Th/cmm (4.8-10.8) 08/20/17 17:50 RBC 5.46 Mil/cmm (3.80-5.20) H 08/20/17 17:50 Hgb 13.8 gm/dL (12-16) 08/20/17 17:50 Hct 42.8 % (41.0-60) D 08/20/17 17:50 MCV 78.3 fl (81-100) L 08/20/17 17:50 MCH 25.3 pg (27.0-31.0) L 08/20/17 17:50 MCHC Differential 32.3 pg (28.0-36.0) 08/20/17 17:50 RDW 14.2 % (11.5-20.0) 08/20/17 17:50 Plt Count 200 Th/cmm (150-400) D 08/20/17 17:50 MPV 8.9 fl 08/20/17 17:50 Neutrophils % 55.5 % (40.0-80.0) 08/20/17 17:50 Lymphocytes % 26.6 % (20.0-50.0) 08/20/17 17:50 Monocytes % 12.6 % (2.0-10.0) H 08/20/17 17:50 Eosinophils % 4.2 % (0.0-5.0) 08/20/17 17:50 Basophils % 1.1 % (0.0-2.0) 08/20/17 17:50 Sodium 134 mEq/L (136-145) L 08/20/17 16:45 Potassium 5.4 mEq/L (3.5-5.1) H 08/20/17 16:45 Chloride 103 mEq/L (98-107) 08/20/17 16:45 Carbon Dioxide 24.6 mEq/L (21.0-31.0) 08/20/17 16:45 Anion Gap 11.8 (7.0-16.0) 08/20/17 16:45 BUN 22 mg/dL (7-25) 08/20/17 16:45 Creatinine 0.7 mg/dL (0.6-1.2) 08/20/17 16:45 Est GFR ( Amer) TNP 08/20/17 16:45 Est GFR (Non-Af Amer) TNP 08/20/17 16:45 BUN/Creatinine Ratio 31.4 08/20/17 16:45 Glucose 165 mg/dL (70-105) H 08/20/17 16:45 POC Glucose 141 MG/DL (70 - 105) H 08/27/17 06:36 Calcium 9.5 mg/dL (8.6-10.3) 08/20/17 16:45 Total Bilirubin 0.4 mg/dL (0.3-1.0) 08/20/17 16:45 AST 17 U/L (13-39) 08/20/17 16:45 ALT 10 U/L (7-52) 08/20/17 16:45 Alkaline Phosphatase 80 U/L (34-104) 08/20/17 16:45 Total Protein 6.8 gm/dL (6.0-8.3) 08/20/17 16:45 Albumin 3.8 gm/dL (3.7-5.3) 08/20/17 16:45 Globulin 3.0 gm/dL 08/20/17 16:45 Albumin/Globulin Ratio 1.3 (1.0-1.8) 08/20/17 16:45 Triglycerides 83 mg/dL (<150) 08/20/17 16:45 Cholesterol 184 mg/dL (<200) 08/20/17 16:45 LDL Cholesterol Direct 120 mg/dL (75-193) 08/20/17 16:45 HDL Cholesterol 58 mg/dL (23-92) 08/20/17 16:45 TSH 0.60 uIU/ml (0.34-5.60) 08/20/17 16:45 Urine Source CLEAN C 08/20/17 17:52 Urine Color YELLOW 08/20/17 17:52 Urine Clarity CLEAR (CLEAR) 08/20/17 17:52 Urine pH 6.0 (4.6 - 8.0) 08/20/17 17:52 Ur Specific [place] 1.025 (1.005-1.030) 08/20/17 17:52 Urine Protein NEGATIVE mg/dL (NEGATIVE) 08/20/17 17:52 Urine Glucose (UA) NEGATIVE mg/dL (NEGATIVE) 08/20/17 17:52 Urine Ketones NEGATIVE mg/dL (NEGATIVE) 08/20/17 17:52 Urine Blood NEGATIVE (NEGATIVE) 08/20/17 17:52 Urine Nitrate NEGATIVE (NEGATIVE) 08/20/17 17:52 Urine Bilirubin NEGATIVE (NEGATIVE) 08/20/17 17:52 Urine Urobilinogen 1.0 E.U./dL (0.2 - 1.0) 08/20/17 17:52 Ur Leukocyte Esterase NEGATIVE (NEGATIVE) 08/20/17 17:52 Urine RBC NONE SEEN /hpf (0-5) 08/20/17 17:52 Urine WBC NONE SEEN /hpf (0-5) 08/20/17 17:52 Ur Epithelial Cells NONE SEEN /lpf (FEW) 08/20/17 17:52 Urine Bacteria NONE SEEN /hpf (NONE SEEN) 08/20/17 17:52 Salicylates < 25.0 mg/L (30.0-100.0) L 08/20/17 16:45 Urine Opiates Screen NEGATIVE (NEGATIVE) 08/20/17 17:52 Urine Methadone Screen NEGATIVE (NEGATIVE) 08/20/17 17:52 Acetaminophen < 10.0 ug/mL (10.0-30.0) L 08/20/17 16:45 Ur Barbiturates Screen NEGATIVE (NEGATIVE) 08/20/17 17:52 Ur Tricyclics Screen NEGATIVE (NEGATIVE) 08/20/17 17:52 Ur Phencyclidine Scrn NEGATIVE (NEGATIVE) 08/20/17 17:52 Amphetamines Screen NEGATIVE (NEGATIVE) 08/20/17 17:52 U Methamphetamines Scrn NEGATIVE (NEGATIVE) 08/20/17 17:52 U Benzodiazepines Scrn NEGATIVE (NEGATIVE) 08/20/17 17:52 U Cocaine Metab Screen NEGATIVE (NEGATIVE) 08/20/17 17:52 U Cannabinoids Screen NEGATIVE (NEGATIVE) 08/20/17 17:52 Ethyl Alcohol < 10 mg/dL (0-10) 08/20/17 16:45 RPR NONREACTIVE (NONREACTIVE) 08/20/17 16:45 - Physical Exam Vitals and I&O: Vital Signs Temp 97.8 F 08/27/17 06:48 Pulse 98 08/27/17 06:48 Resp 19 08/27/17 06:48 BP 136/69 08/27/17 06:48 Pulse Ox 97 08/27/17 06:48 Intake & Output 08/26/17 08/27/17 08/27/17 18:59 06:59 18:59 Intake Total 400 120 Balance 400 120 Intake: Oral 400 120 Other: # Voids 3 3 # Bowel Movements 1 0 Active Medications: Current Medications Acetaminophen (Tylenol) 650 mg PO Q4HR PRN PRN Reason: Mild Pain / Temp above 100 Stop: 10/19/17 20:17 Last Admin: 08/23/17 11:16 Dose: 650 mg Al Hydrox/Mg Hydrox/Simethicone (Maalox) 30 ml PO Q4HR PRN PRN Reason: GI DISTRESS Stop: 10/19/17 20:17 Albuterol/Ipratropium (Duoneb Neb) 3 ml HHN Q6H PRN PRN Reason: sob Stop: 10/19/17 20:38 Carvedilol (Coreg) 3.125 mg PO BID TARA Stop: 10/20/17 08:59 Last Admin: 08/26/17 16:53 Dose: Not Given Dextromethorphan/Quinidine (Nuedexta 20mg-10mg) 1 cap PO Q12H TARA Stop: 10/20/17 08:59 Last Admin: 08/26/17 20:36 Dose: Not Given Diphenhydramine HCl (Benadryl) 25 mg PO TID PRN PRN Reason: Cough Stop: 10/21/17 13:24 Divalproex Sodium (Depakote Dr) 125 mg PO BID TARA PRN Reason: Protocol Stop: 10/20/17 08:59 Last Admin: 08/26/17 17:12 Dose: 125 mg Divalproex Sodium (Depakote Sprinkle) 125 mg PO Q12HR TARA PRN Reason: Protocol Stop: 10/24/17 20:59 Last Admin: 08/26/17 20:36 Dose: Not Given Insulin Aspart (Novolog Insulin Sliding Scale) 0 units SUBQ BIDAC TARA PRN Reason: Protocol Stop: 10/22/17 07:29 Last Admin: 08/27/17 06:50 Dose: Not Given Levetiracetam (Keppra) 500 mg PO Q12H TARA Stop: 10/20/17 08:59 Last Admin: 08/26/17 20:37 Dose: Not Given Lorazepam (Ativan) 0.5 mg PO Q8H PRN; Protocol PRN Reason: Anxiety Stop: 10/19/17 20:38 Last Admin: 08/26/17 19:03 Dose: 0.5 mg Magnesium Hydroxide (Milk Of Magnesia) 30 ml PO HS PRN PRN Reason: Constipation Multivitamins/Vitamin C (Theragran) 1 tab PO DAILY TARA Stop: 10/20/17 08:59 Last Admin: 08/26/17 10:36 Dose: Not Given Pantoprazole Sodium (Protonix) 40 mg PO DAILY TARA Stop: 10/20/17 08:59 Last Admin: 08/26/17 10:35 Dose: 40 mg Zolpidem Tartrate (Ambien) 5 mg PO HS PRN PRN Reason: Insomnia Stop: 10/19/17 20:17 General: Alert, Other HEENT: Atraumatic Neck: Supple Cardiovascular: Regular rate Lungs: Clear to auscultation Abdomen: Bowel sounds, Soft Extremities: Other (No edema) Neurological: Other (Non ambulatory) Skin: Other (warm and dry) Psych/Mental Status: Other (Confused) - Procedures Procedures: Procedures Procedure Code Date OTHER GROUP THERAPY 94.44 02/10/14 Assessment/Plan - Problem List Patient Problems: All Active Problems BPD (Active) DM (Active) GERD (Active) Hyperlipidemia (Active) Seizure (Active) agitation (Active) Mental health problem (Acute) F48.9 - Assessment Assessment: Patient is awake, confused, agitated in no acute distress. Dx: Psychosis, HTN, DM, Dyslipemia, Seizure disorder, A-fib. - Plan Plan: Patient is follow by Psychiatry. Will continue with SNF meds. Nutritional Asmnt/Malnutr-PDOC - Dietary Evaluation Malnutrition Findings (Please click <Entered> for more info): Nutritional Asmnt/Malnutrition Start: 08/23/17 17: 05 Text: Status: Complete Freq: Document 08/23/17 17:05 GSVIET (Rec: 08/23/17 17:16 ARTEM [email or web address]) Nutritional Asmnt/Malnutrition Patient General Information Nutritional Screening Moderate Risk Screening Diagnosis Psychotic disorder NOS, dementia behavioral change Pertinent Medical Hx/Surgical Hx Afib, CAD, HTN, dementia, muscle atrophy, DM Subjective Information 82 year old female from SNF. Per EMR, 0% for 5 out of 6 meals recorded. Pt with 1 meal of 75% yesterday 08/22 with family assisted with meal, telegraphic typewriter operator visualized. Visited pt during meal time today. ALUMINUM SIDING INSTALLER assisting with meals, observed pt finished >50% of meal at time of visit. ALUMINUM SIDING INSTALLER also stated pt ate 100% of breakfast with total assist. Prior to meal time, pt with eyes closed, non -verbal. Pt does not appear 5ft 7in nor 165lb, CBW 111.2lb via bedscale. No muscle fat wasting noted. Current Diet Order/ Nutrition Support Regular, groun meat Pertinent Medications Novolog, MOM, Theragran Pertinent Labs 08/20: glucose 165H POC glucose 115-266 since adm Nutritional Hx/Data Current Weight (lbs) 50.439 kg Weight (Calculated Kilograms) 50.4 Weight (Calculated Grams) 42764.5 GI Symptoms Usual diet at home [place] Care: regular, mech soft, thin, ground meat Skin Integrity/Comment: Gopi 16. Discoloration upper arms. Estimated Nutritional Goals BEE in Kcals: Using Current wt Calories/Kcals/Kg CBW 111.2lb/50.5kg Kcals Calculated 1263-1515kcal (25-30kcal/kg) Protein: Using Current wt Protein Calculated 51g (1g/kg) Fluid: ml 1263-1515ml (1ml/kcal) Nutritional Problem 2. Problem Problem Altered nutrition related laboratory values Etiology DM aeb Signs/Symptoms: H&P, elevated glucose levels, on DM meds 1. Problem Problem Self feeding difficult yrelated to Etiology medical condition, cognition aeb Signs/Symptoms: pt requires total assist Intervention/Recommendation Comments 1. Recommend [id number] with Bosot glucose QD, mech soft chopped with ground meat. 2. Nursing staff to provide total assist with meals. 3. Monitor weight and height. Pt does not appear 5ft 7in at 165lb. CBW 111.2lb via bedscale. No muscle/fat wasting noted. Expected Outcomes/Goals Expected Outcomes/Goals 1. PO intake to meet at least 75% of estimated nutritinoal needs.
[2017-08-27] MEDS: Dextromethorphan/Quinidine 20mg/10mg Cap PO SCH ×2 (12:30→21:39)
[2017-08-27] MEDS: Multivitamin Tab PO SCH (12:31)
[2017-08-27] MEDS: Pantoprazole 40 mg EC Tab PO SCH (12:31)
--- NOTE | 2017-08-27 20:34 | Progress Notes ---
DATE: 08/26/2017 SUBJECTIVE: Staff was spoken to. The patient is interviewed. Mood is noted to be irritable. Affect is constricted. Insight and judgment are noted to be still impaired. Impulse control seems to be limited. The patient has been still screaming and yelling. The patient has to be treated redirected actually because of her age, we have been trying to be careful with minimizing the dose of the medications. ASSESSMENT: The patient is still demented and impulsive. PLAN: To continue the patient with the current medications and followup. JOB# [id number]
--- NOTE | 2017-08-28 04:02 | Progress Notes ---
DATE: 08/27/2017 PSYCHIATRIC PROGRESS NOTE SUBJECTIVE: Staff was spoken to. The patient is interviewed. Mood is noted to be irritable. The patient is screaming and yelling. The patient could not be contained and has to be given a dose of Ativan to calm her down. Insight and judgment at this time are noted to be still impaired. The patient is still demented and is not able to be redirected. ASSESSMENT: The patient is impulsive and demented. PLAN: To give the patient a low dose of Ativan. I encouraged the patient to verbalize the concerns rather than to act out. JOB# [id number]
[2017-08-28] MEDS: INSULIN ASPART SLIDING SCALE 100 UNITS/ML UNIT SUBQ SCH (07:04)
--- NOTE | 2017-08-28 08:54 | General Progress Note ---
Subjective - Review of Systems Service Date: 08/28/17 Subjective: Non verbal Objective - Results Result Diagrams: 08/20/17 17:50 08/20/17 16:45 Recent Labs: Laboratory Last Values WBC 6.6 Th/cmm (4.8-10.8) 08/20/17 17:50 RBC 5.46 Mil/cmm (3.80-5.20) H 08/20/17 17:50 Hgb 13.8 gm/dL (12-16) 08/20/17 17:50 Hct 42.8 % (41.0-60) D 08/20/17 17:50 MCV 78.3 fl (81-100) L 08/20/17 17:50 MCH 25.3 pg (27.0-31.0) L 08/20/17 17:50 MCHC Differential 32.3 pg (28.0-36.0) 08/20/17 17:50 RDW 14.2 % (11.5-20.0) 08/20/17 17:50 Plt Count 200 Th/cmm (150-400) D 08/20/17 17:50 MPV 8.9 fl 08/20/17 17:50 Neutrophils % 55.5 % (40.0-80.0) 08/20/17 17:50 Lymphocytes % 26.6 % (20.0-50.0) 08/20/17 17:50 Monocytes % 12.6 % (2.0-10.0) H 08/20/17 17:50 Eosinophils % 4.2 % (0.0-5.0) 08/20/17 17:50 Basophils % 1.1 % (0.0-2.0) 08/20/17 17:50 Sodium 134 mEq/L (136-145) L 08/20/17 16:45 Potassium 5.4 mEq/L (3.5-5.1) H 08/20/17 16:45 Chloride 103 mEq/L (98-107) 08/20/17 16:45 Carbon Dioxide 24.6 mEq/L (21.0-31.0) 08/20/17 16:45 Anion Gap 11.8 (7.0-16.0) 08/20/17 16:45 BUN 22 mg/dL (7-25) 08/20/17 16:45 Creatinine 0.7 mg/dL (0.6-1.2) 08/20/17 16:45 Est GFR ( Amer) TNP 08/20/17 16:45 Est GFR (Non-Af Amer) TNP 08/20/17 16:45 BUN/Creatinine Ratio 31.4 08/20/17 16:45 Glucose 165 mg/dL (70-105) H 08/20/17 16:45 POC Glucose 175 MG/DL (70 - 105) H 08/28/17 06:58 Calcium 9.5 mg/dL (8.6-10.3) 08/20/17 16:45 Total Bilirubin 0.4 mg/dL (0.3-1.0) 08/20/17 16:45 AST 17 U/L (13-39) 08/20/17 16:45 ALT 10 U/L (7-52) 08/20/17 16:45 Alkaline Phosphatase 80 U/L (34-104) 08/20/17 16:45 Total Protein 6.8 gm/dL (6.0-8.3) 08/20/17 16:45 Albumin 3.8 gm/dL (3.7-5.3) 08/20/17 16:45 Globulin 3.0 gm/dL 08/20/17 16:45 Albumin/Globulin Ratio 1.3 (1.0-1.8) 08/20/17 16:45 Triglycerides 83 mg/dL (<150) 08/20/17 16:45 Cholesterol 184 mg/dL (<200) 08/20/17 16:45 LDL Cholesterol Direct 120 mg/dL (75-193) 08/20/17 16:45 HDL Cholesterol 58 mg/dL (23-92) 08/20/17 16:45 TSH 0.60 uIU/ml (0.34-5.60) 08/20/17 16:45 Urine Source CLEAN C 08/20/17 17:52 Urine Color YELLOW 08/20/17 17:52 Urine Clarity CLEAR (CLEAR) 08/20/17 17:52 Urine pH 6.0 (4.6 - 8.0) 08/20/17 17:52 Ur Specific [place] 1.025 (1.005-1.030) 08/20/17 17:52 Urine Protein NEGATIVE mg/dL (NEGATIVE) 08/20/17 17:52 Urine Glucose (UA) NEGATIVE mg/dL (NEGATIVE) 08/20/17 17:52 Urine Ketones NEGATIVE mg/dL (NEGATIVE) 08/20/17 17:52 Urine Blood NEGATIVE (NEGATIVE) 08/20/17 17:52 Urine Nitrate NEGATIVE (NEGATIVE) 08/20/17 17:52 Urine Bilirubin NEGATIVE (NEGATIVE) 08/20/17 17:52 Urine Urobilinogen 1.0 E.U./dL (0.2 - 1.0) 08/20/17 17:52 Ur Leukocyte Esterase NEGATIVE (NEGATIVE) 08/20/17 17:52 Urine RBC NONE SEEN /hpf (0-5) 08/20/17 17:52 Urine WBC NONE SEEN /hpf (0-5) 08/20/17 17:52 Ur Epithelial Cells NONE SEEN /lpf (FEW) 08/20/17 17:52 Urine Bacteria NONE SEEN /hpf (NONE SEEN) 08/20/17 17:52 Salicylates < 25.0 mg/L (30.0-100.0) L 08/20/17 16:45 Urine Opiates Screen NEGATIVE (NEGATIVE) 08/20/17 17:52 Urine Methadone Screen NEGATIVE (NEGATIVE) 08/20/17 17:52 Acetaminophen < 10.0 ug/mL (10.0-30.0) L 08/20/17 16:45 Ur Barbiturates Screen NEGATIVE (NEGATIVE) 08/20/17 17:52 Ur Tricyclics Screen NEGATIVE (NEGATIVE) 08/20/17 17:52 Ur Phencyclidine Scrn NEGATIVE (NEGATIVE) 08/20/17 17:52 Amphetamines Screen NEGATIVE (NEGATIVE) 08/20/17 17:52 U Methamphetamines Scrn NEGATIVE (NEGATIVE) 08/20/17 17:52 U Benzodiazepines Scrn NEGATIVE (NEGATIVE) 08/20/17 17:52 U Cocaine Metab Screen NEGATIVE (NEGATIVE) 08/20/17 17:52 U Cannabinoids Screen NEGATIVE (NEGATIVE) 08/20/17 17:52 Ethyl Alcohol < 10 mg/dL (0-10) 08/20/17 16:45 RPR NONREACTIVE (NONREACTIVE) 08/20/17 16:45 - Physical Exam Vitals and I&O: Vital Signs Temp 97.8 F 08/27/17 14:00 Pulse 82 08/27/17 14:00 Resp 20 08/27/17 14:00 BP 131/66 08/27/17 14:00 Pulse Ox 96 08/27/17 14:00 Intake & Output 08/27/17 08/28/17 08/28/17 18:59 06:59 18:59 Intake Total 1800 60 Balance 1800 60 Weight (lbs) 50.485 kg Intake: Oral 1800 60 Other: # Voids 4 1 # Bowel Movements 1 0 Active Medications: Current Medications Acetaminophen (Tylenol) 650 mg PO Q4HR PRN PRN Reason: Mild Pain / Temp above 100 Stop: 10/19/17 20:17 Last Admin: 08/23/17 11:16 Dose: 650 mg Al Hydrox/Mg Hydrox/Simethicone (Maalox) 30 ml PO Q4HR PRN PRN Reason: GI DISTRESS Stop: 10/19/17 20:17 Albuterol/Ipratropium (Duoneb Neb) 3 ml HHN Q6H PRN PRN Reason: sob Stop: 10/19/17 20:38 Carvedilol (Coreg) 3.125 mg PO BID [facility] Stop: 10/20/17 08:59 Last Admin: 08/27/17 16:37 Dose: Not Given Dextromethorphan/Quinidine (Nuedexta 20mg-10mg) 1 cap PO Q12H TARA Stop: 10/20/17 08:59 Last Admin: 08/27/17 21:39 Dose: 1 cap Diphenhydramine HCl (Benadryl) 25 mg PO TID PRN PRN Reason: Cough Stop: 10/21/17 13:24 Divalproex Sodium (Depakote Dr) 125 mg PO BID TARA PRN Reason: Protocol Stop: 10/20/17 08:59 Last Admin: 08/27/17 16:37 Dose: Not Given Divalproex Sodium (Depakote Sprinkle) 125 mg PO Q12HR TARA PRN Reason: Protocol Stop: 10/24/17 20:59 Last Admin: 08/27/17 21:39 Dose: 125 mg Insulin Aspart (Novolog Insulin Sliding Scale) 0 units SUBQ BIDAC TARA PRN Reason: Protocol Stop: 10/22/17 07:29 Last Admin: 08/28/17 07:04 Dose: Not Given Levetiracetam (Keppra) 500 mg PO Q12H [facility] Stop: 10/20/17 08:59 Last Admin: 08/27/17 21:39 Dose: 500 mg Lorazepam (Ativan) 0.5 mg PO Q8H PRN; Protocol PRN Reason: Anxiety Stop: 10/19/17 20:38 Last Admin: 08/27/17 21:45 Dose: 0.5 mg Magnesium Hydroxide (Milk Of Magnesia) 30 ml PO HS PRN PRN Reason: Constipation Multivitamins/Vitamin C (Theragran) 1 tab PO DAILY TARA Stop: 10/20/17 08:59 Last Admin: 08/27/17 12:31 Dose: Not Given Pantoprazole Sodium (Protonix) 40 mg PO DAILY TARA Stop: 10/20/17 08:59 Last Admin: 08/27/17 12:31 Dose: Not Given General: Alert, Other HEENT: Atraumatic Neck: Supple Cardiovascular: Regular rate Lungs: Clear to auscultation Abdomen: Bowel sounds, Soft Extremities: Other (No edema) Neurological: Other (Non ambulatory) Skin: Other (warm and dry) Psych/Mental Status: Other (Confused) - Procedures Procedures: Procedures Procedure Code Date OTHER GROUP THERAPY 94.44 02/10/14 Assessment/Plan - Problem List Patient Problems: All Active Problems BPD (Active) DM (Active) GERD (Active) Hyperlipidemia (Active) Seizure (Active) agitation (Active) Mental health problem (Acute) F48.9 - Assessment Assessment: Patient is awake, confused, agitated in no acute distress. Dx: Psychosis, HTN, DM, Dyslipemia, Seizure disorder, A-fib. - Plan Plan: Patient is follow by Psychiatry. Will continue with SNF meds. Nutritional Asmnt/Malnutr-PDOC - Dietary Evaluation Malnutrition Findings (Please click <Entered> for more info): Nutritional Asmnt/Malnutrition Start: 08/23/17 17: 05 Text: Status: Complete Freq: Document 08/23/17 17:05 ARTEM (Rec: 08/23/17 17:16 ARTEM [id number]) Nutritional Asmnt/Malnutrition Patient General Information Nutritional Screening Moderate Risk Screening Diagnosis Psychotic disorder NOS, dementia behavioral change Pertinent Medical Hx/Surgical Hx Afib, CAD, HTN, dementia, muscle atrophy, DM Subjective Information 82 year old female from SNF. Per EMR, 0% for 5 out of 6 meals recorded. Pt with 1 meal of 75% yesterday 08/22 with family assisted with meal, leader writer visualized. Visited pt during meal time today. REGULATORY AND COMPLIANCE TECHNICIAN assisting with meals, observed pt finished >50% of meal at time of visit. REGULATORY AND COMPLIANCE TECHNICIAN also stated pt ate 100% of breakfast with total assist. Prior to meal time, pt with eyes closed, non -verbal. Pt does not appear 5ft 7in nor 165lb, CBW 111.2lb via bedscale. No muscle fat wasting noted. Current Diet Order/ Nutrition Support Regular, groun meat Pertinent Medications Novolog, MOM, Theragran Pertinent Labs 08/20: glucose 165H POC glucose 115-266 since adm Nutritional Hx/Data Current Weight (lbs) 50.439 kg Weight (Calculated Kilograms) 50.4 Weight (Calculated Grams) 94708.5 GI Symptoms Usual diet at home [place] [facility]: regular, mech soft, thin, ground meat Skin Integrity/Comment: Gopi 16. Discoloration upper arms. Estimated Nutritional Goals BEE in Kcals: Using Current wt Calories/Kcals/Kg CBW 111.2lb/50.5kg Kcals Calculated 1263-1515kcal (25-30kcal/kg) Protein: Using Current wt Protein Calculated 51g (1g/kg) Fluid: ml 1263-1515ml (1ml/kcal) Nutritional Problem 2. Problem Problem Altered nutrition related laboratory values Etiology DM aeb Signs/Symptoms: H&P, elevated glucose levels, on DM meds 1. Problem Problem Self feeding difficult yrelated to Etiology medical condition, cognition aeb Signs/Symptoms: pt requires total assist Intervention/Recommendation Comments 1. Recommend [id number] with Bosot glucose QD, mech soft chopped with ground meat. 2. Nursing staff to provide total assist with meals. 3. Monitor weight and height. Pt does not appear 5ft 7in at 165lb. CBW 111.2lb via bedscale. No muscle/fat wasting noted. Expected Outcomes/Goals Expected Outcomes/Goals 1. PO intake to meet at least 75% of estimated nutritinoal needs.
[2017-08-28] MEDS: Dextromethorphan/Quinidine 20mg/10mg Cap PO SCH (09:35)
[2017-08-28] MEDS: Multivitamin Tab PO SCH (09:36)
[2017-08-28] MEDS: Pantoprazole 40 mg EC Tab PO SCH (09:36)
--- NOTE | 2017-08-29 03:19 | Progress Notes ---
DATE: 08/28/2017 SUBJECTIVE: Staff was spoken to. The patient is interviewed. Mood is noted to be anxious. Affect is appropriate. Not suicidal or homicidal. Insight and judgment noted to be improving. Impulse control seems to be fair at this time. The patient has sundowning syndrome and the patient has not been presenting with any threats to harm self or others at this time. Coping skills at this time are noted to be very poor. ASSESSMENT: The patient is stabilizing. PLAN: To discharge the patient today for followup on an outpatient basis. JOB# [id number]
--- NOTE | 2017-08-29 14:51 | Discharge Summary ---
DATE OF DISCHARGE: 08/28/2017 IDENTIFYING DATA: The patient is an 82-year-old woman admitted from the retirement facility that is the [facility]. JUSTIFICATION OF HOSPITALIZATION: The patient is admitted here for acute agitation and confusion. Chart is reviewed. The patient is interviewed and patient is noted to be screaming and yelling and not able to provide much of information. DIAGNOSIS AT THE TIME OF ADMISSION: AXIS I: A. Psychotic disorder, not otherwise specified. B. Dementia and behavioral change, secondary to it. AXIS II: None. AXIS III: As per Dr. Flores. HISTORY OF PRESENT ILLNESS: Please refer to the 08/21/2017 dictation done by me. Physical examination at the time of admission was done by Dr. Flores and is significant for the following: Patient has a history of seizure disorder, hypertension, diabetes mellitus, dyslipidemia, and atrial fibrillation. HOSPITAL COURSE AND RESPONSE TO TREATMENT: The patient had the blood work done that was reviewed by Dr. Flores. Patient's sodium was noted to be 134 and patient has been closely monitored for seizures and blood sugar at the time of the admission was noted to be 165. Urinalysis indicated no infection. Hospital course and response to treatment, because of her age of the patient, we have been very careful in not over medicating the patient, but the patient has been closely monitored and encouraged to participate in the groups. The patient has been isolative for most of the time and 125 mg of the Depakote that was in the beginning has been discontinued and the patient has been given the Ativan as needed and the patient started to do fairly well and hence patient was continued on 125 mg of the Depakote sprinkles and the patient was finally discharged on 08/28/2017 with recommendation that she is going to be seeking treatment on an outpatient basis. MENTAL STATUS EXAMINATION: At the time of discharge, the patient's mood is noted to be less irritable. Affect is appropriate. The patient is not screaming and yelling. Insight and judgment at this time are noted to be improving. Impulse control seems to be fair. No side effects to the medications are noted. DIAGNOSES AT THE TIME OF DISCHARGE:. 1A. Dementia, psychosis, NOS. B. Dementia and behavioral change, secondary trait. AFTER CARE PLAN: The patient is discharged for followup on outpatient basis. PROGNOSIS: At the time of discharge noted to be fair with the treatment. [facility]# [id number]
== END 2017-08-28 13:20 | disposition home or self-care (01) | DRG 884 ==
LOC: ER 16:07 → GERO 19:00
PROVIDERS: ADMIT Psychiatry & Neurology Psychiatry; ATTEND Psychiatry & Neurology Psychiatry
DX: F03.91 Unspecified dementia, unspecified severity, with behavioral disturbance (principal); I48.91 Unspecified atrial fibrillation; G40.909 Epilepsy, unspecified, not intractable, without status epilepticus; E11.9 Type 2 diabetes mellitus without complications; F29 Unspecified psychosis not due to a substance or known physiological condition; I10 Essential (primary) hypertension; E78.5 Hyperlipidemia, unspecified; F20.9 Schizophrenia, unspecified; Z66 Do not resuscitate; I25.10 Atherosclerotic heart disease of native coronary artery without angina pectoris; Z88.0 Allergy status to penicillin; Z79.51 Long term (current) use of inhaled steroids
CPT/HCPCS: 36415-UA; 71010-TC; 80053-TC; 80061-TC; 80307; 80320-TC; 80329-TC; 81001-TC; 82948-90; 84443-TC; 85025-TC; 86592-TC; 93005; 94760; J1630; J1815; J2060; Z7610